=== PATIENT | female | born 1995 | race Caucasian/White ===

== ENCOUNTER 2016-07-29 09:32 | Emergency (ER) | payer OTHER ==
[2016-07-29] MEDS ORDERED: SODIUM CHLORIDE 0.9% 1,000 ML IV STA (09:53)
[2016-07-29] MEDS ORDERED: IPRATROPIUM-ALBUTEROL 3 ML NEB INHALATION STA (10:04)
--- NOTE | 2016-07-29 10:09 | ED ---
Syncope HPI - General Chief Complaint: Syncope Stated Complaint: SYNCOPE, TYPE 1 DIABETIC Time Seen by Provider: 07/29/16 09:53 Source: patient, RN notes reviewed Mode of arrival: ambulatory Limitations: no limitations - History of Present Illness Initial Comments: 21-year-old female presents emergency Department with chief complaint of syncopal episode. Patient was standing outside with her boyfriend in which she states that she just didn't feel right in which she states that she became hot and flushed and she states she started having tunnel vision. Patient states that she's never had an episode like this in the past. Patient has no complaints at this time. She did admit to being sick over the last 5 or 6 days in which she's had cough congestion. She states she's been taking Mucinex. Patient does have a history of asthma, hypothyroidism and diabetes. Patient states her most recent Accu-Chek was 200. Patient did not have a hypoglycemic event. Patient denies any chest pain or palpitations. Patient states she is a daily smoker. Patient denies any nausea vomiting diarrhea constipation. - Related Data Home Medications Medication Instructions Recorded Confirmed Insulin Aspart [NovoLOG Flexpen] See Protocol SQ AC-TID 07/29/16 07/29/16 Insulin Detemir [Levemir Flextouch] 21 unit SQ HS 07/29/16 07/29/16 Levothyroxine Sodium [Levoxyl] 125 mcg PO DAILY 07/29/16 07/29/16 Allergies Allergy/AdvReac Type Severity Reaction Status Date / Time cefaclor [From [facility]] Allergy Anaphylaxis Verified 07/29/16 11:13 Review of Systems ROS Statement: Those systems with pertinent positive or pertinent negative responses have been documented in the HPI. ROS Other: All systems not noted in ROS Statement are negative. Past Medical History Past Medical History: Diabetes Mellitus Additional Past Medical History / Comment(s): galilea History of Any Multi-Drug Resistant Organisms: None Reported Past Surgical History: No Surgical Hx Reported Past Psychological History: Anxiety Smoking Status: Current every day smoker Past Alcohol Use History: Occasional Past Drug Use History: None Reported General Exam Limitations: no limitations General appearance: alert, in no apparent distress Head exam: Present: atraumatic, normocephalic, normal inspection Eye exam: Present: normal appearance, PERRL, EOMI. Absent: scleral icterus, conjunctival injection, periorbital swelling ENT exam: Present: normal exam, normal oropharynx, mucous membranes moist, TM's normal bilaterally, normal external ear exam Neck exam: Present: normal inspection, full ROM. Absent: tenderness, meningismus, lymphadenopathy Respiratory exam: Present: normal lung sounds bilaterally. Absent: respiratory distress, wheezes, rales, rhonchi, stridor Cardiovascular Exam: Present: normal rhythm, tachycardia, normal heart sounds. Absent: systolic murmur, diastolic murmur, rubs, gallop, clicks GI/Abdominal exam: Present: soft, normal bowel sounds. Absent: distended, tenderness, guarding, rebound, rigid Neurological exam: Present: alert, oriented X3, CN II-XII intact Skin exam: Present: warm, dry, intact, normal color. Absent: rash Course Vital Signs 07/29/16 07/29/16 07/29/16 09:44 10:14 10:34 Temperature 98.5 F Pulse Rate 120 H 110 H Pulse Rate [ 112 H [employer] ] Respiratory 20 14 Rate Blood Pressure 100/67 112/63 O2 Sat by Pulse 97 96 Oximetry 07/29/16 10:40 Temperature Pulse Rate 112 H Pulse Rate [ [employer] ] Respiratory Rate Blood Pressure O2 Sat by Pulse Oximetry EKG Findings - EKG Comments: EKG Findings:: EKG performed at 10:20 sinus tachycardia with a rate of 110, MD 172, QRS duration 78, QT/QTC 354/479 Medical Decision Making - Medical Decision Making 21-year-old female presents emergency department for syncopal episode. Patient did have a vasovagal syncopal episode. Patient will be discharged at this time lab work did show mild hyperglycemia though patient has known diabetic. Return parameters were discussed. - Lab Data Result diagrams: 07/29/16 10:25 07/29/16 10:25 Lab Results 07/29/16 07/29/16 07/29/16 Range/Units 10:25 10:25 10:25 WBC 6.1 (3.8-10.6) k/uL RBC 4.81 (3.80-5.40) m/uL Hgb 15.6 (11.4-16.0) gm/dL Hct 45.7 (34.0-46.0) % MCV 95.0 (80.0-100.0) fL MCH 32.5 (25.0-35.0) pg MCHC 34.2 (31.0-37.0) g/dL RDW 11.8 (11.5-15.5) % Plt Count 177 (150-450) k/uL Neutrophils % 72 % Lymphocytes % 20 % Monocytes % 5 % Eosinophils % 1 % Basophils % 1 % Neutrophils # 4.3 (1.3-7.7) k/uL Lymphocytes # 1.2 (1.0-4.8) k/uL Monocytes # 0.3 (0-1.0) k/uL Eosinophils # 0.0 (0-0.7) k/uL Basophils # 0.0 (0-0.2) k/uL PT 9.7 (9.0-12.0) sec INR 0.9 (<1.1) APTT 24.6 (22.0-30.0) sec D-Dimer 0.20 (<0.60) mg/L FEU Sodium 137 (137-145) mmol/L Potassium 4.2 (3.5-5.1) mmol/L Chloride 99 (98-107) mmol/L Carbon Dioxide 23 (22-30) mmol/L Anion Gap 15 mmol/L BUN 15 (7-17) mg/dL Creatinine 0.65 (0.52-1.04) mg/dL Est GFR (MDRD) Af Amer >60 (>60 ml/min/1.73 sqM) Est GFR (MDRD) Non-Af >60 (>60 ml/min/1.73 sqM) Glucose 284 H (74-99) mg/dL Calcium 9.1 (8.4-10.2) mg/dL Total Bilirubin 0.6 (0.2-1.3) mg/dL AST 57 H (14-36) U/L ALT 52 (9-52) U/L Alkaline Phosphatase 93 (38-126) U/L Total Protein 7.3 (6.3-8.2) g/dL Albumin 4.3 (3.5-5.0) g/dL Urine Color Urine Appearance (Clear) Urine pH (5.0-8.0) Ur Specific [place] (1.001-1.035) Urine Protein (Negative) Urine Glucose (UA) (Negative) Urine Ketones (Negative) Urine Blood (Negative) Urine Nitrite (Negative) Urine Bilirubin (Negative) Urine Urobilinogen (<2.0) mg/dL Ur Leukocyte Esterase (Negative) Urine HCG, Qual (Not Detectd) Urine Opiates Screen (NotDetected) Ur Oxycodone Screen (NotDetected) Urine Methadone Screen (NotDetected) Ur Propoxyphene Screen (NotDetected) Ur Barbiturates Screen (NotDetected) U Tricyclic Antidepress (NotDetected) Ur Phencyclidine Scrn (NotDetected) Ur Amphetamines Screen (NotDetected) U Methamphetamines Scrn (NotDetected) U Benzodiazepines Scrn (NotDetected) Urine Cocaine Screen (NotDetected) U Marijuana (THC) Screen (NotDetected) 07/29/16 07/29/16 07/29/16 Range/Units 10:25 10:25 10:25 WBC (3.8-10.6) k/uL RBC (3.80-5.40) m/uL Hgb (11.4-16.0) gm/dL Hct (34.0-46.0) % MCV (80.0-100.0) fL MCH (25.0-35.0) pg MCHC (31.0-37.0) g/dL RDW (11.5-15.5) % Plt Count (150-450) k/uL Neutrophils % % Lymphocytes % % Monocytes % % Eosinophils % % Basophils % % Neutrophils # (1.3-7.7) k/uL Lymphocytes # (1.0-4.8) k/uL Monocytes # (0-1.0) k/uL Eosinophils # (0-0.7) k/uL Basophils # (0-0.2) k/uL PT (9.0-12.0) sec INR (<1.1) APTT (22.0-30.0) sec D-Dimer (<0.60) mg/L FEU Sodium (137-145) mmol/L Potassium (3.5-5.1) mmol/L Chloride (98-107) mmol/L Carbon Dioxide (22-30) mmol/L Anion Gap mmol/L BUN (7-17) mg/dL Creatinine (0.52-1.04) mg/dL Est GFR (MDRD) Af Amer (>60 ml/min/1.73 sqM) Est GFR (MDRD) Non-Af (>60 ml/min/1.73 sqM) Glucose (74-99) mg/dL Calcium (8.4-10.2) mg/dL Total Bilirubin (0.2-1.3) mg/dL AST (14-36) U/L ALT (9-52) U/L Alkaline Phosphatase (38-126) U/L Total Protein (6.3-8.2) g/dL Albumin (3.5-5.0) g/dL Urine Color Light Yellow Urine Appearance Clear (Clear) Urine pH 5.5 (5.0-8.0) Ur Specific [place] 1.014 (1.001-1.035) Urine Protein Negative (Negative) Urine Glucose (UA) 4+ H (Negative) Urine Ketones 1+ H (Negative) Urine Blood Negative (Negative) Urine Nitrite Negative (Negative) Urine Bilirubin Negative (Negative) Urine Urobilinogen <2.0 (<2.0) mg/dL Ur Leukocyte Esterase Negative (Negative) Urine HCG, Qual Not Detected (Not Detectd) Urine Opiates Screen Not Detected (NotDetected) Ur Oxycodone Screen Not Detected (NotDetected) Urine Methadone Screen Not Detected (NotDetected) Ur Propoxyphene Screen Not Detected (NotDetected) Ur Barbiturates Screen Not Detected (NotDetected) U Tricyclic Antidepress Not Detected (NotDetected) Ur Phencyclidine Scrn Not Detected (NotDetected) Ur Amphetamines Screen Not Detected (NotDetected) U Methamphetamines Scrn Not Detected (NotDetected) U Benzodiazepines Scrn Not Detected (NotDetected) Urine Cocaine Screen Not Detected (NotDetected) U Marijuana (THC) Screen Not Detected (NotDetected) Disposition Clinical Impression: Vasovagal syncope Disposition: HOME SELF-CARE Condition: Stable Instructions: Syncope (ED) Additional Instructions: Please return to the Emergency Department if symptoms worsen or any other concerns. Time of Disposition: 11:36
[2016-07-29 10:35] VITALS: RESP 14
[2016-07-29 10:41] LABS: Basophils % (A) 1 %; CHCM 34.9; Eosinophils % (A) 1 %; HCT 45.7 % (34.0-46.0); HGB 15.6 gm/dL (11.4-16.0); Luc # (Auto) 0.17; Luc % (Auto) 3; Lymphocytes # (A) 1.2 k/uL (1.0-4.8); Lymphocytes % (A) 20 %; MCH 32.5 pg (25.0-35.0); MCHC 34.2 g/dL (31.0-37.0); Mean Platelet Volume 7.7; Monocytes # (A) 0.3 k/uL (0-1.0); Monocytes % (A) 5 %; Neutrophils # (A) 4.3 k/uL (1.3-7.7); Neutrophils % (A) 72 %; RBC 4.81 m/uL (3.80-5.40); RDW 11.8 % (11.5-15.5); WBC 6.1 k/uL (3.8-10.6); WBC (Perox) 6.38
[2016-07-29 10:44] LABS: Appearance,Urine Clear (Clear); Bilirubin,Urine Negative (Negative); Glucose,Urine (UA) 4+ (Negative); Ketones,Urine 1+ (Negative); Leukocyte Esterase,Urine Negative (Negative); Nitrite,Urine Negative (Negative); PH, Urine 5.5 (5.0-8.0); Protein,Urine Negative (Negative); Specific Gravity,Urine 1.014 (1.001-1.035); UA Billing (MACRO vs. MICRO) CHEM; Urobilinogen,Urine <2.0 mg/dL (<2.0)
--- NOTE | 2016-07-29 10:50 | XR ---
EXAMINATION TYPE: XR chest 2V DATE OF EXAM: 07/29/2016 10:37 AM COMPARISON: Chest x-ray January 23, 2013. HISTORY: Syncope. TECHNIQUE: Frontal and lateral views of the chest are obtained. FINDINGS: There is no focal air space opacity, pleural effusion, or pneumothorax seen. The cardiac silhouette size is within normal limits. The osseous structures are intact. IMPRESSION: No acute cardiopulmonary process. No significant change from prior.
[2016-07-29 10:52] LABS: INR 0.9 (<1.1); Prothrombin Time 9.7 sec (9.0-12.0)
[2016-07-29 10:53] LABS: ALT 52 U/L (9-52); AST 57 U/L (14-36); Alkaline Phosphatase 93 U/L (38-126); Anion Gap 15 mmol/L; Blood Urea Nitrogen 15 mg/dL (7-17); Calcium 9.1 mg/dL (8.4-10.2); Carbon Dioxide 23 mmol/L (22-30); Chloride 99 mmol/L (98-107); Glucose 284 mg/dL (74-99); Non-African American GFR(MDRD) >60 (>60 ml/min/1.73 sqM); Partial Thromboplastin Time 24.6 sec (22.0-30.0); Potassium 4.2 mmol/L (3.5-5.1); Sodium 137 mmol/L (137-145); Total Bilirubin 0.6 mg/dL (0.2-1.3); Total Protein 7.3 g/dL (6.3-8.2)
[2016-07-29 12:01] VITALS: BP 112/67; PULSE 117; TEMP 101.6
== END 2016-07-29 12:01 | disposition home or self-care (01) ==
LOC: EC 09:32
DX: E10.65 Type 1 diabetes mellitus with hyperglycemia (principal); R55 Syncope and collapse; R05 Cough; R09.89 Other specified symptoms and signs involving the circulatory and respiratory systems; E06.3 Autoimmune thyroiditis; Z79.4 Long term (current) use of insulin; Z79.899 Other long term (current) drug therapy; Z88.1 Allergy status to other antibiotic agents
CPT/HCPCS: 36415; 71020; 80053; 80306; 81003; 81025; 85025; 85379; 85610; 85730; 93005; 94640; 96360; 99284

== ENCOUNTER 2017-06-30 08:29 | Emergency (ER) | payer OTHER ==
[2017-06-30 08:45] VITALS: RESP 16; TEMP 98.2
[2017-06-30] MEDS ORDERED: FAMOTIDINE 20 MG/2 ML VIAL IV STA (09:28)
[2017-06-30] MEDS ORDERED: SODIUM CHLORIDE 0.9% 1,000 ML IV STA (09:28)
--- NOTE | 2017-06-30 09:51 | ED ---
General Adult HPI - General Chief complaint: Nausea/Vomiting/Diarrhea Stated complaint: vomiting blood, Time Seen by Provider: 06/30/17 09:10 Source: patient, RN notes reviewed Mode of arrival: ambulatory Limitations: no limitations - History of Present Illness Initial comments: 22-year-old female presents to the emergency department with a chief complaint of nausea and vomiting and . She states that she's had this off-and- on for the past few months. She wakes up with soap upper abdominal. She throws up and then the pain resolves. She states that she's noticed that there is been some red streaks in the vomit so she was concerned. She states today it seemed to be a little worse so she also was concerned. She has not vomited since she's got here. She states that her symptoms have much improved. She denies any lightheadedness or dizziness with this. She denies any history of blood in her vomit in the past. She is a . They were concerned when they saw the blood so they thought that they should be seen. Patient denies any recent fever, chills, shortness of breath, chest pain, back pain, abdominal pain , numbness or tingling, dysuria or hematuria, constipation or diarrhea, headaches or visual changes, or any other current symptoms. - Related Data Home Medications Medication Instructions Recorded Confirmed Insulin Aspart [NovoLOG Flexpen] See Protocol SQ AC-TID 07/29/16 06/30/17 Insulin Glargine,Hum.rec.anlog 23 units SQ QAM 06/30/17 06/30/17 [Basaglar Kwikpen U-100] Levothyroxine Sodium [Synthroid] 200 mcg PO QAM 06/30/17 06/30/17 Previous Rx's Medication Instructions Recorded Famotidine [Pepcid] 20 mg PO BID #10 tablet 06/30/17 Metoclopramide HCl [Reglan] 5 mg PO DAILY #10 tablet 06/30/17 Nitrofurantoin Macrocrystal 100 mg PO BID #14 cap 06/30/17 [Macrodantin] Allergies Allergy/AdvReac Type Severity Reaction Status Date / Time cefaclor [From [facility]] Allergy Anaphylaxis Verified 06/30/17 08:55 Review of Systems ROS Statement: Those systems with pertinent positive or pertinent negative responses have been documented in the HPI. ROS Other: All systems not noted in ROS Statement are negative. Past Medical History Past Medical History: Diabetes Mellitus, Thyroid Disorder Additional Past Medical History / Comment(s): galilea History of Any Multi-Drug Resistant Organisms: None Reported Past Surgical History: No Surgical Hx Reported Additional Past Surgical History / Comment(s): d and c , left groin Past Psychological History: Anxiety Smoking Status: Current some day smoker Past Alcohol Use History: None Reported Past Drug Use History: None Reported General Exam - General Exam Comments Initial Comments: General: The patient is awake and alert, in no distress, and does not appear acutely ill. Eye: Pupils are equal, round and reactive to light, extra-ocular movements are intact; there is normal conjunctiva bilaterally. No signs of icterus. Ears, nose, mouth and throat: There are moist mucous membranes. Neck: The neck is supple, there is no tenderness. Cardiovascular: There is a regular rate and rhythm. No murmur, rub or gallop is appreciated. Respiratory: Lungs are clear to auscultation, respirations are non-labored, breath sounds are equal. No wheezes, stridor, rales, or rhonchi. Gastrointestinal: Soft, non-distended, non-tender abdomen without masses or organomegaly noted. There is no rebound or guarding present. No CVA tenderness. Bowel sounds are unremarkable. Back: There is no tenderness to palpation in the midline. There is no obvious deformity. No rashes noted. Musculoskeletal: Normal ROM, no tenderness, There is no pedal edema. There is no calf tenderness or swelling. Sensation intact. Pulses equal bilaterally 2+. Neurological: CN II-XII intact, There are no obvious motor or sensory deficits. Coordination appears grossly intact. Speech is normal. Skin: Skin is warm and dry and no rashes or lesions are noted. Psychiatric: Cooperative, appropriate mood & affect, normal judgment. Limitations: no limitations Course Vital Signs 06/30/17 08:41 Temperature 98.2 F Pulse Rate 98 Respiratory 16 Rate Blood Pressure 131/85 O2 Sat by Pulse 100 Oximetry Medical Decision Making - Medical Decision Making 22-year-old female presents to the emergency department with a chief complaint of nausea and vomiting. At this time patient's lab work has been reviewed. At this time we did discuss the hyperglycemia as well as concern for possible UTI. We will start the patient on antibiotics for UTI we'll also start her on Pepcid and Reglan for the nausea vomiting. We did discuss close monitoring of her glucose level. 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 We did discuss return parameters all questions. Patient stated that she understood and she is in agreement with this plan. All questions have been answered. She will be discharged. - Lab Data Result diagrams: 06/30/17 09:42 06/30/17 09:42 Lab Results 06/30/17 06/30/17 06/30/17 Range/Units 09:42 09:42 09:42 WBC 10.2 (3.8-10.6) k/uL RBC 4.77 (3.80-5.40) m/uL Hgb 14.8 (11.4-16.0) gm/dL Hct 44.1 (34.0-46.0) % MCV 92.4 (80.0-100.0) fL MCH 31.1 (25.0-35.0) pg MCHC 33.6 (31.0-37.0) g/dL RDW 12.7 (11.5-15.5) % Plt Count 218 (150-450) k/uL Neutrophils % 75 % Lymphocytes % 20 % Monocytes % 3 % Eosinophils % 1 % Basophils % 1 % Neutrophils # 7.6 (1.3-7.7) k/uL Lymphocytes # 2.1 (1.0-4.8) k/uL Monocytes # 0.3 (0-1.0) k/uL Eosinophils # 0.1 (0-0.7) k/uL Basophils # 0.1 (0-0.2) k/uL PT (9.0-12.0) sec INR (<1.2) APTT (22.0-30.0) sec Sodium 137 (137-145) mmol/L Potassium 4.4 (3.5-5.1) mmol/L Chloride 100 (98-107) mmol/L Carbon Dioxide 25 (22-30) mmol/L Anion Gap 12 mmol/L BUN 14 (7-17) mg/dL Creatinine 0.49 L (0.52-1.04) mg/dL Est GFR (MDRD) Af Amer >60 (>60 ml/min/1.73 sqM) Est GFR (MDRD) Non-Af >60 (>60 ml/min/1.73 sqM) Glucose 292 H (74-99) mg/dL Calcium 9.0 (8.4-10.2) mg/dL Total Bilirubin 0.5 (0.2-1.3) mg/dL AST 19 (14-36) U/L ALT 21 (9-52) U/L Alkaline Phosphatase 60 (38-126) U/L Total Protein 6.5 (6.3-8.2) g/dL Albumin 3.8 (3.5-5.0) g/dL Amylase 63 (30-110) U/L Lipase 161 (23-300) U/L HCG, Quant 28142.2 mIU/mL Urine Color Urine Appearance (Clear) Urine pH (5.0-8.0) Ur Specific [place] (1.001-1.035) Urine Protein (Negative) Urine Glucose (UA) (Negative) Urine Ketones (Negative) Urine Blood (Negative) Urine Nitrite (Negative) Urine Bilirubin (Negative) Urine Urobilinogen (<2.0) mg/dL Ur Leukocyte Esterase (Negative) Urine RBC (0-5) /hpf Urine WBC (0-5) /hpf Ur Squamous Epith Cells (0-4) /hpf Urine Bacteria (None) /hpf Urine Mucus (None) /hpf Blood Type A Positive Blood Type Recheck CABO Indicated Antibody Screen NEGATIVE Spec Expiration Date 07/03/2017 - 234106/30/17 06/30/17 Range/Units 09:42 09:42 WBC (3.8-10.6) k/uL RBC (3.80-5.40) m/uL Hgb (11.4-16.0) gm/dL Hct (34.0-46.0) % MCV (80.0-100.0) fL MCH (25.0-35.0) pg MCHC (31.0-37.0) g/dL RDW (11.5-15.5) % Plt Count (150-450) k/uL Neutrophils % % Lymphocytes % % Monocytes % % Eosinophils % % Basophils % % Neutrophils # (1.3-7.7) k/uL Lymphocytes # (1.0-4.8) k/uL Monocytes # (0-1.0) k/uL Eosinophils # (0-0.7) k/uL Basophils # (0-0.2) k/uL PT 9.3 (9.0-12.0) sec INR 0.9 (<1.2) APTT 22.4 (22.0-30.0) sec Sodium (137-145) mmol/L Potassium (3.5-5.1) mmol/L Chloride (98-107) mmol/L Carbon Dioxide (22-30) mmol/L Anion Gap mmol/L BUN (7-17) mg/dL Creatinine (0.52-1.04) mg/dL Est GFR (MDRD) Af Amer (>60 ml/min/1.73 sqM) Est GFR (MDRD) Non-Af (>60 ml/min/1.73 sqM) Glucose (74-99) mg/dL Calcium (8.4-10.2) mg/dL Total Bilirubin (0.2-1.3) mg/dL AST (14-36) U/L ALT (9-52) U/L Alkaline Phosphatase (38-126) U/L Total Protein (6.3-8.2) g/dL Albumin (3.5-5.0) g/dL Amylase (30-110) U/L Lipase (23-300) U/L HCG, Quant mIU/mL Urine Color Light Yellow Urine Appearance Cloudy H (Clear) Urine pH 5.5 (5.0-8.0) Ur Specific [place] 1.017 (1.001-1.035) Urine Protein Negative (Negative) Urine Glucose (UA) 4+ H (Negative) Urine Ketones Trace H (Negative) Urine Blood Negative (Negative) Urine Nitrite Negative (Negative) Urine Bilirubin Negative (Negative) Urine Urobilinogen <2.0 (<2.0) mg/dL Ur Leukocyte Esterase Negative (Negative) Urine RBC 1 (0-5) /hpf Urine WBC 10 H (0-5) /hpf Ur Squamous Epith Cells 1 (0-4) /hpf Urine Bacteria Moderate H (None) /hpf Urine Mucus Rare H (None) /hpf Blood Type Blood Type Recheck Antibody Screen Spec Expiration Date Disposition Clinical Impression: Nausea and vomiting during , Hyperglycemia, Dehydration, UTI (urinary tract infection) Disposition: HOME SELF-CARE Condition: Stable Instructions: Urinary Tract Infection in Women (ED), Acute Nausea and Vomiting (ED) Additional Instructions: Please use medication as discussed. Please follow up with family doctor if symptoms have not improved over the next two days. Please return to the emergency room if your symptoms increase or worsen or for any other concerns. Prescriptions: Famotidine [Pepcid] 20 mg PO BID #10 tablet Metoclopramide HCl [Reglan] 5 mg PO DAILY #10 tablet Nitrofurantoin Macrocrystal [Macrodantin] 100 mg PO BID #14 cap Referrals: Gerardo Ambrocio MD [Primary Care Provider] - 1-2 days Time of Disposition: 11:31
[2017-06-30 10:05] LABS: Basophils # (A) 0.1 k/uL (0-0.2); Basophils % (A) 1 %; Eosinophils # (A) 0.1 k/uL (0-0.7); Eosinophils % (A) 1 %; HCT 44.1 % (34.0-46.0); HGB 14.8 gm/dL (11.4-16.0); Lymphocytes # (A) 2.1 k/uL (1.0-4.8); Lymphocytes % (A) 20 %; MCH 31.1 pg (25.0-35.0); MCHC 33.6 g/dL (31.0-37.0); MCV 92.4 fL (80.0-100.0); Mean Platelet Volume 7.5; Monocytes # (A) 0.3 k/uL (0-1.0); Monocytes % (A) 3 %; Neutrophils # (A) 7.6 k/uL (1.3-7.7); Neutrophils % (A) 75 %; Platelet Count 218 k/uL (150-450); RBC 4.77 m/uL (3.80-5.40); RDW 12.7 % (11.5-15.5); WBC 10.2 k/uL (3.8-10.6)
[2017-06-30 10:15] LABS: INR 0.9 (<1.2); Partial Thromboplastin Time 22.4 sec (22.0-30.0); Prothrombin Time 9.3 sec (9.0-12.0)
[2017-06-30 10:18] LABS: Appearance,Urine Cloudy (Clear); Bacteria,Urine Moderate /hpf; Bilirubin,Urine Negative (Negative); Blood,Urine Negative (Negative); Color,Urine Light Yellow; Glucose,Urine (UA) 4+ (Negative); Ketones,Urine Trace (Negative); Leukocyte Esterase,Urine Negative (Negative); Mucus,Urine Rare /hpf; Nitrite,Urine Negative (Negative); PH, Urine 5.5 (5.0-8.0); Protein,Urine Negative (Negative); RBC,Urine 1 /hpf (0-5); Specific Gravity,Urine 1.017 (1.001-1.035); Squamous Epithelial Cell,Urine 1 /hpf (0-4); Urobilinogen,Urine <2.0 mg/dL (<2.0); WBC,Urine 10 /hpf (0-5)
[2017-06-30 10:20] LABS: ALT 21 U/L (9-52); AST 19 U/L (14-36); Albumin 3.8 g/dL (3.5-5.0); Alkaline Phosphatase 60 U/L (38-126); Amylase 63 U/L (30-110); Anion Gap 12 mmol/L; Blood Urea Nitrogen 14 mg/dL (7-17); Carbon Dioxide 25 mmol/L (22-30); Chloride 100 mmol/L (98-107); Glucose 292 mg/dL (74-99); Lipase 161 U/L (23-300); Potassium 4.4 mmol/L (3.5-5.1); Sodium 137 mmol/L (137-145); Total Bilirubin 0.5 mg/dL (0.2-1.3); Total Protein 6.5 g/dL (6.3-8.2)
[2017-06-30 11:07] LABS: HCG,Quantitative Serum 37659.2 mIU/mL
[2017-06-30 11:39] VITALS: BP 113/68; PULSE 86
== END 2017-06-30 11:50 | disposition home or self-care (01) ==
LOC: EC 08:29
DX: O21.9 Vomiting of pregnancy, unspecified (principal); O23.40 Unspecified infection of urinary tract in pregnancy, unspecified trimester; O99.280 Endocrine, nutritional and metabolic diseases complicating pregnancy, unspecified trimester; E11.65 Type 2 diabetes mellitus with hyperglycemia; E86.0 Dehydration; E07.9 Disorder of thyroid, unspecified; O99.330 Smoking (tobacco) complicating pregnancy, unspecified trimester; F17.200 Nicotine dependence, unspecified, uncomplicated; Z79.4 Long term (current) use of insulin; Z79.899 Other long term (current) drug therapy; Z88.1 Allergy status to other antibiotic agents; Z3A.00 Weeks of gestation of pregnancy not specified
CPT/HCPCS: 36415; 80053; 81001; 82150; 83690; 84702; 85025; 85610; 85730; 86850; 86900; 86901; 87077; 87086; 87186; 96361; 96374; 99284

== ENCOUNTER 2021-03-03 18:03 | Inpatient (IN) | payer OTHER ==
[2021-03-03] MEDS ORDERED: ONDANSETRON 4 MG/2 ML VIAL IVP STA ×2 (19:43→21:21)
[2021-03-03] MEDS ORDERED: SODIUM CHLORIDE 0.9% 1,000 ML IV STA ×2 (19:43→21:21)
[2021-03-03 20:05] LABS: Basophils % (A) 0 %; Eosinophils % (A) 0 %; HCT 42.1 % (34.0-46.0); HGB 14.2 gm/dL (11.4-16.0); Lymphocytes # (A) 0.9 k/uL (1.0-4.8); Lymphocytes % (A) 13 %; MCH 31.9 pg (25.0-35.0); MCHC 33.7 g/dL (31.0-37.0); MCV 94.6 fL (80.0-100.0); Mean Platelet Volume 9.2; Monocytes # (A) 0.1 k/uL (0-1.0); Monocytes % (A) 2 %; Neutrophils # (A) 5.6 k/uL (1.3-7.7); Neutrophils % (A) 84 %; Platelet Count 149 k/uL (150-450); RBC 4.45 m/uL (3.80-5.40); RDW 12.3 % (11.5-15.5); WBC 6.7 k/uL (3.8-10.6)
[2021-03-03 20:15] LABS: Albumin 4.3 g/dL (3.5-5.0); Calcium 8.9 mg/dL (8.4-10.2); Potassium 4.7 mmol/L (3.5-5.1); Total Bilirubin 0.3 mg/dL (0.2-1.3); Total Protein 7.1 g/dL (6.3-8.2)
[2021-03-03] MEDS ORDERED: INSULN ASP PRT/INSULIN ASPART 100 UNIT/ML 10 ML VIAL SQ ONE (21:31)
[2021-03-03 21:42] LABS: Glucose,Whole Blood 335 mg/dL (75-99)
[2021-03-03] MEDS ORDERED: SODIUM CHLORIDE 0.9% 50 ML IVPB ONE (21:45)
[2021-03-03] MEDS ORDERED: CASIRIVIMAB (REGN10933) (EUA) 600 MG, IMDEVIMAB (REGN10987) (EUA) 600 MG in SODIUM CHLO... IVPB ONE (22:15)
[2021-03-03] MEDS ORDERED: D5-0.45% NACL WITH KCL 20MEQ/L 1,000 ML IV SCH (22:30)
--- NOTE | 2021-03-03 22:33 | ED ---
Nausea/Vomiting/Diarrhea HPI - General Source: patient, family, RN notes reviewed Mode of arrival: ambulatory Limitations: no limitations <Darin Dominguez - Last Filed: 03/03/21 22:29> <Boston Phipps - Last Filed: 03/06/21 03:33> - General Chief complaint: Nausea/Vomiting/Diarrhea Stated complaint: vomiting Time Seen by Provider: 03/03/21 19:43 - History of Present Illness Initial comments: Patient is a 25-year-old female that presents to emergency department complaining of nausea and abdominal pain. She notes she did get tested for Covid at the local [facility] which came back positive. She notes she does want to monoclonal antibody therapy. She also notes that she is a type I diabetic. Be in minimal distress and pain while laying in bed during the exam interview. She notes that she would like to stay tonight due to having Covid not feeling well and having small children at home. She was otherwise no complaints. She denied chest pain shortness of breath headache diarrhea constipation fever fatigue ch ills. (Darin Dominguez) - Related Data Home Medications Medication Instructions Recorded Confirmed Levothyroxine Sodium [Synthroid] 200 mcg PO DAILY 06/30/17 03/03/21 INSULIN LISPRO (humaLOG) [humaLOG] See Protocol SQ AC-TID 03/03/21 03/03/21 Insulin Glargine [Lantus Vial] 20 units SQ HS 03/03/21 03/03/21 Allergies Allergy/AdvReac Type Severity Reaction Status Date / Time cefaclor [From Ceclor] Allergy Family Verified 03/03/21 20:51 history Review of Systems ROS Other: All systems not noted in ROS Statement are negative. <Darin Dominguez - Last Filed: 03/03/21 22:29> ROS Other: All systems not noted in ROS Statement are negative. <Boston Phipps - Last Filed: 03/06/21 03:33> ROS Statement: Those systems with pertinent positive or pertinent negative responses have been documented in the HPI. Past Medical History Past Medical History: Diabetes Mellitus, Thyroid Disorder Additional Past Medical History / Comment(s): galilea History of Any Multi-Drug Resistant Organisms: None Reported Past Surgical History: No Surgical Hx Reported Additional Past Surgical History / Comment(s): d and c , left groin Past Psychological History: Anxiety Smoking Status: Former smoker Past Alcohol Use History: None Reported Past Drug Use History: None Reported <Darin Dominguez - Last Filed: 03/03/21 22:29> General Exam Limitations: no limitations General appearance: alert, in no apparent distress Head exam: Present: atraumatic, normocephalic, normal inspection Eye exam: Present: normal appearance, PERRL, EOMI. Absent: scleral icterus, conjunctival injection, periorbital swelling ENT exam: Present: normal exam, mucous membranes moist Neck exam: Present: normal inspection Respiratory exam: Present: normal lung sounds bilaterally. Absent: respiratory distress, wheezes, rales, rhonchi, stridor Cardiovascular Exam: Present: regular rate, normal rhythm, normal heart sounds. Absent: systolic murmur, diastolic murmur, rubs, gallop, clicks GI/Abdominal exam: Present: soft, normal bowel sounds. Absent: distended, tenderness, guarding, rebound, rigid Extremities exam: Present: normal inspection, full ROM, normal capillary refill. Absent: tenderness, pedal edema, joint swelling, calf tenderness Neurological exam: Present: alert, oriented X3 Psychiatric exam: Present: normal affect, normal mood Skin exam: Present: warm, dry, intact, normal color. Absent: rash <Veronica Dominguezk - Last Filed: 03/03/21 22:29> Course Vital Signs 03/03/21 03/03/21 03/04/21 18:05 22:37 00:56 Temperature 98.6 F 100.4 F H 100.3 F H Pulse Rate 109 H 105 H 111 H Respiratory 20 18 18 Rate Blood Pressure 94/66 110/73 134/80 O2 Sat by Pulse 98 100 98 Oximetry 03/04/21 03/04/21 03/04/21 04:00 06:00 07:00 Temperature 100.1 F H Pulse Rate 110 H 93 100 Respiratory 20 17 11 L Rate Blood Pressure 120/74 120/74 O2 Sat by Pulse Oximetry 03/04/21 03/04/21 03/04/21 08:00 13:00 16:00 Temperature Pulse Rate 93 95 89 Respiratory 15 12 13 Rate Blood Pressure 120/74 118/74 121/78 O2 Sat by Pulse 100 98 Oximetry 03/04/21 03/04/21 21:00 22:09 Temperature 99.7 F H Pulse Rate 91 Respiratory 13 Rate Blood Pressure 120/81 O2 Sat by Pulse 99 Oximetry Medical Decision Making - Lab Data Result diagrams: 03/03/21 19:59 03/03/21 19:59 <Darin Dominguez - Last Filed: 03/03/21 22:29> - Lab Data Result diagrams: 03/05/21 05:54 03/05/21 05:54 <Boston Phipps - Last Filed: 03/06/21 03:33> - Medical Decision Making 25-year-old female complaining of nausea vomiting and Covid positive. Labs, 1 L normal saline, monoclonal antibody Labs: CBC unremarkable, CMP shows glucose of 416 8 units of insulin ordered. Acetone positive. 1 more liter normal saline ordered due to elevated glucose and positive acetone. Dr. Calero consulted and will accept the admit for DKA. Case discussed with Dr. Phipps. (Darin Dominguez) I saw this patient in conjunction with the physician seo assistant. I performed independent history and physical exam. Agree with case management. (Boston Phipps) - Lab Data Lab Results 03/03/21 03/03/21 03/03/21 Range/Units 19:59 19:59 19:59 WBC 6.7 (3.8-10.6) k/uL RBC 4.45 (3.80-5.40) m/uL Hgb 14.2 (11.4-16.0) gm/dL Hct 42.1 (34.0-46.0) % MCV 94.6 (80.0-100.0) fL MCH 31.9 (25.0-35.0) pg MCHC 33.7 (31.0-37.0) g/dL RDW 12.3 (11.5-15.5) % Plt Count 149 L (150-450) k/uL MPV 9.2 Neutrophils % 84 % Lymphocytes % 13 % Monocytes % 2 % Eosinophils % 0 % Basophils % 0 % Neutrophils # 5.6 (1.3-7.7) k/uL Lymphocytes # 0.9 L (1.0-4.8) k/uL Monocytes # 0.1 (0-1.0) k/uL Eosinophils # 0.0 (0-0.7) k/uL Basophils # 0.0 (0-0.2) k/uL Sodium 139 (137-145) mmol/L Potassium 4.7 (3.5-5.1) mmol/L Chloride 102 (98-107) mmol/L Carbon Dioxide 17 L (22-30) mmol/L Anion Gap 20 mmol/L BUN 21 H (7-17) mg/dL Creatinine 1.18 H (0.52-1.04) mg/dL Est GFR (CKD-EPI)AfAm 74 (>60 ml/min/1.73 sqM) Est GFR (CKD-EPI)NonAf 65 (>60 ml/min/1.73 sqM) Glucose 416 H (74-99) mg/dL POC Glucose (mg/dL) (75-99) mg/dL POC Glu City Controller ID Calcium 8.9 (8.4-10.2) mg/dL Phosphorus (2.5-4.5) mg/dL Total Bilirubin 0.3 (0.2-1.3) mg/dL AST 94 H (14-36) U/L ALT 56 H (4-34) U/L Alkaline Phosphatase 105 (38-126) U/L Total Protein 7.1 (6.3-8.2) g/dL Albumin 4.3 (3.5-5.0) g/dL Amylase 49 (30-110) U/L Lipase 29 (23-300) U/L Urine Color Urine Appearance (Clear) Urine pH (5.0-8.0) Ur Specific [place] (1.001-1.035) Urine Protein (Negative) Urine Glucose (UA) (Negative) Urine Ketones (Negative) Urine Blood (Negative) Urine Nitrite (Negative) Urine Bilirubin (Negative) Urine Urobilinogen (<2.0) mg/dL Ur Leukocyte Esterase (Negative) Urine RBC (0-5) /hpf Urine WBC (0-5) /hpf Ur Squamous Epith Cells (0-4) /hpf Hyaline Casts (0-2) /lpf Urine Mucus (None) /hpf Urine HCG, Qual (Not Detectd) Acetone, Qual Positive (Negative) 03/03/21 03/03/21 03/03/21 Range/Units 21:39 23:18 23:49 WBC (3.8-10.6) k/uL RBC (3.80-5.40) m/uL Hgb (11.4-16.0) gm/dL Hct (34.0-46.0) % MCV (80.0-100.0) fL MCH (25.0-35.0) pg MCHC (31.0-37.0) g/dL RDW (11.5-15.5) % Plt Count (150-450) k/uL MPV Neutrophils % % Lymphocytes % % Monocytes % % Eosinophils % % Basophils % % Neutrophils # (1.3-7.7) k/uL Lymphocytes # (1.0-4.8) k/uL Monocytes # (0-1.0) k/uL Eosinophils # (0-0.7) k/uL Basophils # (0-0.2) k/uL Sodium (137-145) mmol/L Potassium (3.5-5.1) mmol/L Chloride (98-107) mmol/L Carbon Dioxide (22-30) mmol/L Anion Gap mmol/L BUN (7-17) mg/dL Creatinine (0.52-1.04) mg/dL Est GFR (CKD-EPI)AfAm (>60 ml/min/1.73 sqM) Est GFR (CKD-EPI)NonAf (>60 ml/min/1.73 sqM) Glucose (74-99) mg/dL POC Glucose (mg/dL) 335 H 288 H 277 H (75-99) mg/dL POC Glu City Controller ID Chema, Keyon Bear, Susy Diallo Calcium (8.4-10.2) mg/dL Phosphorus (2.5-4.5) mg/dL Total Bilirubin (0.2-1.3) mg/dL AST (14-36) U/L ALT (4-34) U/L Alkaline Phosphatase (38-126) U/L Total Protein (6.3-8.2) g/dL Albumin (3.5-5.0) g/dL Amylase (30-110) U/L Lipase (23-300) U/L Urine Color Urine Appearance (Clear) Urine pH (5.0-8.0) Ur Specific [place] (1.001-1.035) Urine Protein (Negative) Urine Glucose (UA) (Negative) Urine Ketones (Negative) Urine Blood (Negative) Urine Nitrite (Negative) Urine Bilirubin (Negative) Urine Urobilinogen (<2.0) mg/dL Ur Leukocyte Esterase (Negative) Urine RBC (0-5) /hpf Urine WBC (0-5) /hpf Ur Squamous Epith Cells (0-4) /hpf Hyaline Casts (0-2) /lpf Urine Mucus (None) /hpf Urine HCG, Qual (Not Detectd) Acetone, Qual (Negative) 03/03/21 03/03/21 03/04/21 Range/Units 23:50 23:50 00:53 WBC (3.8-10.6) k/uL RBC (3.80-5.40) m/uL Hgb (11.4-16.0) gm/dL Hct (34.0-46.0) % MCV (80.0-100.0) fL MCH (25.0-35.0) pg MCHC (31.0-37.0) g/dL RDW (11.5-15.5) % Plt Count (150-450) k/uL MPV Neutrophils % % Lymphocytes % % Monocytes % % Eosinophils % % Basophils % % Neutrophils # (1.3-7.7) k/uL Lymphocytes # (1.0-4.8) k/uL Monocytes # (0-1.0) k/uL Eosinophils # (0-0.7) k/uL Basophils # (0-0.2) k/uL Sodium 138 (137-145) mmol/L Potassium 4.4 (3.5-5.1) mmol/L Chloride 107 (98-107) mmol/L Carbon Dioxide 17 L (22-30) mmol/L Anion Gap 14 mmol/L BUN 18 H (7-17) mg/dL Creatinine 0.93 (0.52-1.04) mg/dL Est GFR (CKD-EPI)AfAm >90 (>60 ml/min/1.73 sqM) Est GFR (CKD-EPI)NonAf 86 (>60 ml/min/1.73 sqM) Glucose 307 H (74-99) mg/dL POC Glucose (mg/dL) 278 H (75-99) mg/dL POC Glu City Controller ID Hightower, Susy Calcium (8.4-10.2) mg/dL Phosphorus 3.7 (2.5-4.5) mg/dL Total Bilirubin (0.2-1.3) mg/dL AST (14-36) U/L ALT (4-34) U/L Alkaline Phosphatase (38-126) U/L Total Protein (6.3-8.2) g/dL Albumin (3.5-5.0) g/dL Amylase (30-110) U/L Lipase (23-300) U/L Urine Color Urine Appearance (Clear) Urine pH (5.0-8.0) Ur Specific [place] (1.001-1.035) Urine Protein (Negative) Urine Glucose (UA) (Negative) Urine Ketones (Negative) Urine Blood (Negative) Urine Nitrite (Negative) Urine Bilirubin (Negative) Urine Urobilinogen (<2.0) mg/dL Ur Leukocyte Esterase (Negative) Urine RBC (0-5) /hpf Urine WBC (0-5) /hpf Ur Squamous Epith Cells (0-4) /hpf Hyaline Casts (0-2) /lpf Urine Mucus (None) /hpf Urine HCG, Qual (Not Detectd) Acetone, Qual (Negative) 03/04/21 03/04/21 03/04/21 Range/Units 01:41 01:41 01:49 WBC (3.8-10.6) k/uL RBC (3.80-5.40) m/uL Hgb (11.4-16.0) gm/dL Hct (34.0-46.0) % MCV (80.0-100.0) fL MCH (25.0-35.0) pg MCHC (31.0-37.0) g/dL RDW (11.5-15.5) % Plt Count (150-450) k/uL MPV Neutrophils % % Lymphocytes % % Monocytes % % Eosinophils % % Basophils % % Neutrophils # (1.3-7.7) k/uL Lymphocytes # (1.0-4.8) k/uL Monocytes # (0-1.0) k/uL Eosinophils # (0-0.7) k/uL Basophils # (0-0.2) k/uL Sodium (137-145) mmol/L Potassium (3.5-5.1) mmol/L Chloride (98-107) mmol/L Carbon Dioxide (22-30) mmol/L Anion Gap mmol/L BUN (7-17) mg/dL Creatinine (0.52-1.04) mg/dL Est GFR (CKD-EPI)AfAm (>60 ml/min/1.73 sqM) Est GFR (CKD-EPI)NonAf (>60 ml/min/1.73 sqM) Glucose (74-99) mg/dL POC Glucose (mg/dL) 209 H (75-99) mg/dL POC Glu City Controller ID Stephanie Davis Calcium (8.4-10.2) mg/dL Phosphorus (2.5-4.5) mg/dL Total Bilirubin (0.2-1.3) mg/dL AST (14-36) U/L ALT (4-34) U/L Alkaline Phosphatase (38-126) U/L Total Protein (6.3-8.2) g/dL Albumin (3.5-5.0) g/dL Amylase (30-110) U/L Lipase (23-300) U/L Urine Color Yellow Urine Appearance Clear (Clear) Urine pH 5.5 (5.0-8.0) Ur Specific [place] 1.023 (1.001-1.035) Urine Protein 1+ H (Negative) Urine Glucose (UA) 4+ H (Negative) Urine Ketones 3+ H (Negative) Urine Blood Negative (Negative) Urine Nitrite Negative (Negative) Urine Bilirubin Negative (Negative) Urine Urobilinogen <2.0 (<2.0) mg/dL Ur Leukocyte Esterase Negative (Negative) Urine RBC 3 (0-5) /hpf Urine WBC 2 (0-5) /hpf Ur Squamous Epith Cells <1 (0-4) /hpf Hyaline Casts 18 H (0-2) /lpf Urine Mucus Rare H (None) /hpf Urine HCG, Qual Not Detected (Not Detectd) Acetone, Qual (Negative) 03/04/21 03/04/21 03/04/21 Range/Units 02:34 04:00 05:03 WBC (3.8-10.6) k/uL RBC (3.80-5.40) m/uL Hgb (11.4-16.0) gm/dL Hct (34.0-46.0) % MCV (80.0-100.0) fL MCH (25.0-35.0) pg MCHC (31.0-37.0) g/dL RDW (11.5-15.5) % Plt Count (150-450) k/uL MPV Neutrophils % % Lymphocytes % % Monocytes % % Eosinophils % % Basophils % % Neutrophils # (1.3-7.7) k/uL Lymphocytes # (1.0-4.8) k/uL Monocytes # (0-1.0) k/uL Eosinophils # (0-0.7) k/uL Basophils # (0-0.2) k/uL Sodium (137-145) mmol/L Potassium (3.5-5.1) mmol/L Chloride (98-107) mmol/L Carbon Dioxide (22-30) mmol/L Anion Gap mmol/L BUN (7-17) mg/dL Creatinine (0.52-1.04) mg/dL Est GFR (CKD-EPI)AfAm (>60 ml/min/1.73 sqM) Est GFR (CKD-EPI)NonAf (>60 ml/min/1.73 sqM) Glucose (74-99) mg/dL POC Glucose (mg/dL) 176 H 135 H 116 H (75-99) mg/dL POC Glu City Controller ID Davis, Stephanie Davis, Stephanie Davis, Stephanie Calcium (8.4-10.2) mg/dL Phosphorus (2.5-4.5) mg/dL Total Bilirubin (0.2-1.3) mg/dL AST (14-36) U/L ALT (4-34) U/L Alkaline Phosphatase (38-126) U/L Total Protein (6.3-8.2) g/dL Albumin (3.5-5.0) g/dL Amylase (30-110) U/L Lipase (23-300) U/L Urine Color Urine Appearance (Clear) Urine pH (5.0-8.0) Ur Specific [place] (1.001-1.035) Urine Protein (Negative) Urine Glucose (UA) (Negative) Urine Ketones (Negative) Urine Blood (Negative) Urine Nitrite (Negative) Urine Bilirubin (Negative) Urine Urobilinogen (<2.0) mg/dL Ur Leukocyte Esterase (Negative) Urine RBC (0-5) /hpf Urine WBC (0-5) /hpf Ur Squamous Epith Cells (0-4) /hpf Hyaline Casts (0-2) /lpf Urine Mucus (None) /hpf Urine HCG, Qual (Not Detectd) Acetone, Qual (Negative) 03/04/21 03/04/21 Range/Units 06:19 07:54 WBC (3.8-10.6) k/uL RBC (3.80-5.40) m/uL Hgb (11.4-16.0) gm/dL Hct (34.0-46.0) % MCV (80.0-100.0) fL MCH (25.0-35.0) pg MCHC (31.0-37.0) g/dL RDW (11.5-15.5) % Plt Count (150-450) k/uL MPV Neutrophils % % Lymphocytes % % Monocytes % % Eosinophils % % Basophils % % Neutrophils # (1.3-7.7) k/uL Lymphocytes # (1.0-4.8) k/uL Monocytes # (0-1.0) k/uL Eosinophils # (0-0.7) k/uL Basophils # (0-0.2) k/uL Sodium (137-145) mmol/L Potassium (3.5-5.1) mmol/L Chloride (98-107) mmol/L Carbon Dioxide (22-30) mmol/L Anion Gap mmol/L BUN (7-17) mg/dL Creatinine (0.52-1.04) mg/dL Est GFR (CKD-EPI)AfAm (>60 ml/min/1.73 sqM) Est GFR (CKD-EPI)NonAf (>60 ml/min/1.73 sqM) Glucose (74-99) mg/dL POC Glucose (mg/dL) 162 H 199 H (75-99) mg/dL POC Glu City Controller ID Stephanie Davis Lauren Calcium (8.4-10.2) mg/dL Phosphorus (2.5-4.5) mg/dL Total Bilirubin (0.2-1.3) mg/dL AST (14-36) U/L ALT (4-34) U/L Alkaline Phosphatase (38-126) U/L Total Protein (6.3-8.2) g/dL Albumin (3.5-5.0) g/dL Amylase (30-110) U/L Lipase (23-300) U/L Urine Color Urine Appearance (Clear) Urine pH (5.0-8.0) Ur Specific [place] (1.001-1.035) Urine Protein (Negative) Urine Glucose (UA) (Negative) Urine Ketones (Negative) Urine Blood (Negative) Urine Nitrite (Negative) Urine Bilirubin (Negative) Urine Urobilinogen (<2.0) mg/dL Ur Leukocyte Esterase (Negative) Urine RBC (0-5) /hpf Urine WBC (0-5) /hpf Ur Squamous Epith Cells (0-4) /hpf Hyaline Casts (0-2) /lpf Urine Mucus (None) /hpf Urine HCG, Qual (Not Detectd) Acetone, Qual (Negative) Disposition Is patient prescribed a controlled substance at d/c from ED?: No Time of Disposition: 22:32 <Darin Dominguez - Last Filed: 03/03/21 22:29> <Boston Phipps - Last Filed: 03/06/21 03:33> Clinical Impression: Diabetic ketoacidosis, Nausea & vomiting, Dehydration Disposition: ADMITTED IP TO THIS HOSP Condition: Stable
[2021-03-03] MEDS ORDERED: INSULIN REGULAR 100 UNIT in SODIUM CHLORIDE 0.9% 100 ML IV SCH (22:45)
[2021-03-03] MEDS ORDERED: METOCLOPRAMIDE 5 MG/ML 2 ML VIAL IVP STA (23:13)
[2021-03-03 23:22] LABS: Glucose,Whole Blood 288 mg/dL (75-99)
[2021-03-03] MEDS: SODIUM CHLORIDE 0.9% 1,000 ML IV SCH (23:41)
[2021-03-03 23:50] LABS: Glucose,Whole Blood 277 mg/dL (75-99)
[2021-03-04 00:15] LABS: African American GFR (CKD) >90 (>60 ml/min/1.73 sqM); Anion Gap 14 mmol/L; Blood Urea Nitrogen 18 mg/dL (7-17); Carbon Dioxide 17 mmol/L (22-30); Chloride 107 mmol/L (98-107); Glucose 307 mg/dL (74-99); Non-African American GFR(CKD) 86 (>60 ml/min/1.73 sqM); Potassium 4.4 mmol/L (3.5-5.1); Sodium 138 mmol/L (137-145)
[2021-03-04 01:03] LABS: Glucose,Whole Blood 278 mg/dL (75-99)
[2021-03-04 01:55] LABS: Glucose,Whole Blood 209 mg/dL (75-99)
[2021-03-04 02:27] LABS: Appearance,Urine Clear (Clear); Bilirubin,Urine Negative (Negative); Blood,Urine Negative (Negative); Color,Urine Yellow; Glucose,Urine (UA) 4+ (Negative); Hyaline Casts,Urine 18 /lpf (0-2); Leukocyte Esterase,Urine Negative (Negative); Mucus,Urine Rare /hpf; Nitrite,Urine Negative (Negative); PH, Urine 5.5 (5.0-8.0); Protein,Urine 1+ (Negative); RBC,Urine 3 /hpf (0-5); Specific Gravity,Urine 1.023 (1.001-1.035); Squamous Epithelial Cell,Urine <1 /hpf (0-4); Urobilinogen,Urine <2.0 mg/dL (<2.0); WBC,Urine 2 /hpf (0-5)
[2021-03-04 02:36] LABS: Ketones,Urine 3+ (Negative)
[2021-03-04] MEDS: ONDANSETRON 4 MG/2 ML VIAL IVP PRN ×2 (02:36→13:46)
[2021-03-04 02:37] LABS: Glucose,Whole Blood 176 mg/dL (75-99)
[2021-03-04] MEDS ORDERED: ONDANSETRON 4 MG/2 ML VIAL IVP STA ×2 (02:48→02:49)
[2021-03-04 04:02] LABS: Glucose,Whole Blood 135 mg/dL (75-99)
[2021-03-04 04:29] LABS: African American GFR (CKD) >90 (>60 ml/min/1.73 sqM); Anion Gap 9 mmol/L; Blood Urea Nitrogen 17 mg/dL (7-17); Carbon Dioxide 22 mmol/L (22-30); Chloride 110 mmol/L (98-107); Glucose 144 mg/dL (74-99); Non-African American GFR(CKD) >90 (>60 ml/min/1.73 sqM); Phosphorus 2.2 mg/dL (2.5-4.5); Potassium 3.7 mmol/L (3.5-5.1); Sodium 141 mmol/L (137-145)
[2021-03-04] MEDS ORDERED: INSULIN DETEMIR (LEVEMIR) 100 UNIT/ML SYR SQ SCH ×2 (04:45→21:00)
[2021-03-04] MEDS ORDERED: METOCLOPRAMIDE 5 MG/ML 2 ML VIAL IVP STA (04:49)
[2021-03-04] MEDS ORDERED: MORPHINE SULFATE 2 MG/ML SYRINGE IVP STA (04:49)
[2021-03-04] MEDS ORDERED: diphenhydrAMINE 50 MG/ML 1 ML VIAL IVP STA (04:51)
--- NOTE | 2021-03-04 05:00 | P.HPIM ---
History of Present Illness H&P Date: 03/03/21 Chief Complaint: nausea vomiting 25-year-old female with diabetes mellitus insulin-dependent, Galilea's thyroiditis, asthma intermittent Patient comes in today with 2 day history of not feeling well she got tested for Covid for symptoms that started about a week ago with core muscle body aches and occasional nausea vomiting in coughing some low-grade fevers denies any diarrhea denies any changes in smell or taste sensation denies any chest pain or trouble breathing. She got the results of Covid positive today this was confirmed at our facility. Upon performing further workup patient was found to be in DKA complaining of some abdominal pain she denies any bloody bowel movements or bloody vomiting however she said due to forceful repeat vomiting she start seeing some streaks of blood in her throw up. In the ED she was given Regeneron and was started on insulin drip for DKA pathway Patient has been in DKA in the past she claims that she is compliant with her insulin, despite her vomiting and abdominal pain she was still taking her insulin at she denies any urinary changes or bowel habit changes. Review of Systems Pertinent positives as noted in HPI. All other systems were reviewed and are negative Past Medical History Past Medical History: Diabetes Mellitus, Thyroid Disorder Additional Past Medical History / Comment(s): galilea History of Any Multi-Drug Resistant Organisms: None Reported Past Surgical History: No Surgical Hx Reported Additional Past Surgical History / Comment(s): d and c , left groin Past Psychological History: Anxiety Smoking Status: Former smoker Past Alcohol Use History: None Reported Past Drug Use History: None Reported - Past Family History Family Family Medical History: No Reported History Medications and Allergies Home Medications Medication Instructions Recorded Confirmed Type Levothyroxine Sodium [Synthroid] 200 mcg PO DAILY 06/30/17 03/03/21 History INSULIN LISPRO (humaLOG) [humaLOG] See Protocol SQ AC-TID 03/03/21 03/03/21 H istory Insulin Glargine [Lantus Vial] 20 units SQ HS 03/03/21 03/03/21 History Allergies Allergy/AdvReac Type Severity Reaction Status Date / Time [facility]aclor [[facility]] Allergy Family Verified 03/03/21 20:51 history Physical Exam Vitals: Vital Signs Temp Pulse Resp BP Pulse Ox 03/04/21 04:00 100.1 F H 110 H 20 120/74 03/04/21 00:56 100.3 F H 111 H 18 134/80 98 03/03/21 22:37 100.4 F H 105 H 18 110/73 100 03/03/21 18:05 98.6 F 109 H 20 94/66 98 Intake and Output 03/03/21 03/03/21 03/04/21 14:59 22:59 06:59 Intake Total 37.768 Balance 37.768 Intake: Intake, IV Titration 37.768 Amount Insulin Regular 100 unit 37.768 In Sodium Chloride 0.9% 100 ml @ 0.1 UNITS/KG/HR 8.017 mls/hr IV .[id number] [facility] Rx#:[id number] Other: Weight 79.379 kg Constitutional: No acute distress, conversant, pleasant Eyes: Anicteric sclerae, moist conjunctiva, Pupils equal round reactive to light ENMT: NC/AT Oropharynx clear, no erythema, or exudates Neck: Supple, FROM, no masses, or JVD No carotid bruits No thyromegaly Lungs: Clear to auscultation Clear to percussion Normal respiratory effort, no accessory muscle use Cardiovascular: Heart regular in rate and rhythm, No murmurs, gallops, or rubs No peripheral edema Abdominal: Soft Nontender, no guarding, rebound or rigidity Abdomen moving with respiration Normoactive bowel sounds No hepatomegaly, No splenomegaly No palpable mass No abdominal wall hernia noted Skin: Normal temperature, tone, texture, turgor No induration No subcutaneous nodules No rash, lesions No ulcers Extremities: No digital cyanosis No clubbing Pedal pulses intact and symmetrical Radial pulses intact and symmetrical No calf tenderness Psychiatric: Alert and oriented to person, place and time Appropriate affect fair judgement Neuro Muscles Strength 5/5 in all 4 extremities Sensation to light touch grossly present throughout Cranial nerves II-XII grossly intact No focal sensory deficits Lymphatics: no palpable cervical or supraclavicular , or inguinal lymph nodes Results CBC & Chem 7: 03/03/21 19:59 03/04/21 Unknown Labs: Abnormal Lab Results - Last 24 Hours (Table) 03/03/21 03/03/21 03/03/21 Range/Units 19:59 19:59 21:39 Plt Count 149 L (150-450) k/uL Lymphocytes # 0.9 L (1.0-4.8) k/uL Chloride (98-107) mmol/L Carbon Dioxide 17 L (22-30) mmol/L BUN 21 H (7-17) mg/dL Creatinine 1.18 H (0.52-1.04) mg/dL Glucose 416 H (74-99) mg/dL POC Glucose (mg/dL) 335 H (75-99) mg/dL Phosphorus (2.5-4.5) mg/dL AST 94 H (14-36) U/L ALT 56 H (4-34) U/L Urine Protein (Negative) Urine Glucose (UA) (Negative) Urine Ketones (Negative) Hyaline Casts (0-2) /lpf Urine Mucus (None) /hpf 03/03/21 03/03/21 03/03/21 Range/Units 23:18 23:49 23:50 Plt Count (150-450) k/uL Lymphocytes # (1.0-4.8) k/uL Chloride (98-107) mmol/L Carbon Dioxide 17 L (22-30) mmol/L BUN 18 H (7-17) mg/dL Creatinine (0.52-1.04) mg/dL Glucose 307 H (74-99) mg/dL POC Glucose (mg/dL) 288 H 277 H (75-99) mg/dL Phosphorus (2.5-4.5) mg/dL AST (14-36) U/L ALT (4-34) U/L Urine Protein (Negative) Urine Glucose (UA) (Negative) Urine Ketones (Negative) Hyaline Casts (0-2) /lpf Urine Mucus (None) /hpf 03/04/21 03/04/21 03/04/21 Range/Units 00:53 01:41 01:49 Plt Count (150-450) k/uL Lymphocytes # (1.0-4.8) k/uL Chloride (98-107) mmol/L Carbon Dioxide (22-30) mmol/L BUN (7-17) mg/dL Creatinine (0.52-1.04) mg/dL Glucose (74-99) mg/dL POC Glucose (mg/dL) 278 H 209 H (75-99) mg/dL Phosphorus (2.5-4.5) mg/dL AST (14-36) U/L ALT (4-34) U/L Urine Protein 1+ H (Negative) Urine Glucose (UA) 4+ H (Negative) Urine Ketones 3+ H (Negative) Hyaline Casts 18 H (0-2) /lpf Urine Mucus Rare H (None) /hpf 03/04/21 03/04/21 03/04/21 Range/Units 02:34 04:00 Unknown Plt Count (150-450) k/uL Lymphocytes # (1.0-4.8) k/uL Chloride 110 H (98-107) mmol/L Carbon Dioxide (22-30) mmol/L BUN (7-17) mg/dL Creatinine (0.52-1.04) mg/dL Glucose 144 H (74-99) mg/dL POC Glucose (mg/dL) 176 H 135 H (75-99) mg/dL Phosphorus 2.2 L (2.5-4.5) mg/dL AST (14-36) U/L ALT (4-34) U/L Urine Protein (Negative) Urine Glucose (UA) (Negative) Urine Ketones (Negative) Hyaline Casts (0-2) /lpf Urine Mucus (None) /hpf Assessment and Plan Assessment: DKA Nothing by mouth Aggressive IV fluid hydration Insulin drip Monitor electrolytes, anion gap and bicarb Transition to D5 0.45 fluids per protocol once blood sugar less than 300 until gap and bicarb corrected line Intractable nausea vomiting Symptomatic control Covid positive Patient received monoclonal antibody Patient not requiring oxygen Hypothyroidism with history of Galilea's thyroiditis Resume levothyroxine DVT prophylaxis heparin subcu 3 times a day Patient is full code Anticipated discharge home Anticipated length of stay less than 2 midnights
[2021-03-04 05:04] LABS: Glucose,Whole Blood 116 mg/dL (75-99)
[2021-03-04] MEDS: SODIUM CHLORIDE 0.9% 1,000 ML IV SCH ×3 (05:10→23:11)
[2021-03-04 05:14] LABS: Basophils % (A) 0 %; Eosinophils % (A) 0 %; HCT 37.6 % (34.0-46.0); HGB 12.7 gm/dL (11.4-16.0); Lymphocytes # (A) 1.3 k/uL (1.0-4.8); Lymphocytes % (A) 14 %; MCH 31.4 pg (25.0-35.0); MCHC 33.9 g/dL (31.0-37.0); MCV 92.8 fL (80.0-100.0); Mean Platelet Volume 8.6; Monocytes # (A) 0.2 k/uL (0-1.0); Monocytes % (A) 2 %; Neutrophils # (A) 7.7 k/uL (1.3-7.7); Neutrophils % (A) 82 %; Platelet Count 151 k/uL (150-450); RBC 4.05 m/uL (3.80-5.40); RDW 12.1 % (11.5-15.5); WBC 9.4 k/uL (3.8-10.6)
[2021-03-04 05:30] LABS: INR 0.8 (<1.2); Partial Thromboplastin Time 23.2 sec (22.0-30.0); Prothrombin Time 9.4 sec (9.0-12.0)
[2021-03-04 05:38] LABS: African American GFR (CKD) >90 (>60 ml/min/1.73 sqM); Anion Gap 12 mmol/L; Blood Urea Nitrogen 16 mg/dL (7-17); C Reactive Protein 5.7 mg/dL (<1.0); Carbon Dioxide 19 mmol/L (22-30); Chloride 110 mmol/L (98-107); Glucose 120 mg/dL (74-99); LDH 819 U/L (313-618); Non-African American GFR(CKD) >90 (>60 ml/min/1.73 sqM); Potassium 3.7 mmol/L (3.5-5.1); Sodium 141 mmol/L (137-145)
[2021-03-04 06:20] LABS: Glucose,Whole Blood 162 mg/dL (75-99)
[2021-03-04] MEDS: LEVOTHYROXINE 100 MCG TAB PO SCH (06:53)
[2021-03-04 07:55] LABS: Glucose,Whole Blood 199 mg/dL (75-99)
[2021-03-04 09:10] LABS: Erythrocyte Sedimentation Rate 62 mm/hr (0-20)
[2021-03-04] MEDS: INSULIN ASPART (NovoLOG) 100 UNIT/ML VIAL SQ SCH ×4 (09:40→22:00)
[2021-03-04] MEDS: HEPARIN SODIUM,PORCINE/PF 5,000 UNIT/0.5 ML SYRINGE SQ SCH ×3 (09:41→22:57)
--- NOTE | 2021-03-04 12:05 | P.PN ---
Subjective Progress Note Date: 03/04/21 Principal diagnosis: COVID with DKA Patient seen and examined at bedside. Patient denies chest pain, shortness of breath, nausea, vomiting, fever or chills. Nausea has subsided. Sugars have improved. Objective - Vital Signs Vital signs: Vital Signs Temp 100.1 F H 03/04/21 04:00 Pulse 93 03/04/21 06:00 Resp 17 03/04/21 06:00 BP 120/74 03/04/21 04:00 Pulse Ox 98 03/04/21 00:56 Intake & Output 03/03/21 03/04/21 03/04/21 18:59 06:59 18:59 Intake Total 37.768 Balance 37.768 Weight 79.379 kg Intake: Intake, IV Titration 37.768 Amount Insulin Regular 100 unit 37.768 In Sodium Chloride 0.9% 100 ml @ 0.1 UNITS/KG/HR 8.017 mls/hr IV .[id number] [facility] Rx#:[id number] - Exam General: [non toxic], [no distress], [appears at stated age] Derm: [warm], [dry] Head: [atraumatic], [normocephalic], [symmetric] Eyes: [EOMI], [no lid lag], [anicteric sclera] Mouth: [no lip lesion], [mucus membranes moist] Cardiovascular: [S1S2 reg], [no murmur], [positive posterior tibial pulse bilateral], Lungs: [CTA bilateral], [no rhonchi, no rales] , [no accessory muscle use] Abdominal: [soft], [ nontender to palpation], [no guarding], [no appreciable organomegaly] Ext: [no gross muscle atrophy], [no edema], [no contractures] Neuro: [ CN II-XI grossly intact], [no focal neuro deficits] Psych: [Alert], [oriented], [appropriate affect] - Labs CBC & Chem 7: 03/04/21 Unknown 03/04/21 Unknown Labs: Abnormal Lab Results - Last 24 Hours (Table) 03/03/21 03/03/21 03/03/21 Range/Units 19:59 19:59 21:39 Plt Count 149 L (150-450) k/uL Lymphocytes # 0.9 L (1.0-4.8) k/uL ESR (0-20) mm/hr Chloride (98-107) mmol/L Carbon Dioxide 17 L (22-30) mmol/L BUN 21 H (7-17) mg/dL Creatinine 1.18 H (0.52-1.04) mg/dL Glucose 416 H (74-99) mg/dL POC Glucose (mg/dL) 335 H (75-99) mg/dL Calcium (8.4-10.2) mg/dL Phosphorus (2.5-4.5) mg/dL Ferritin (10.0-291.0) ng/mL AST 94 H (14-36) U/L ALT 56 H (4-34) U/L Lactate Dehydrogenase (313-618) U/L C-Reactive Protein (<1.0) mg/dL Procalcitonin (0.02-0.09) ng/mL Urine Protein (Negative) Urine Glucose (UA) (Negative) Urine Ketones (Negative) Hyaline Casts (0-2) /lpf Urine Mucus (None) /hpf 03/03/21 03/03/21 03/03/21 Range/Units 23:18 23:49 23:50 Plt Count (150-450) k/uL Lymphocytes # (1.0-4.8) k/uL ESR (0-20) mm/hr Chloride (98-107) mmol/L Carbon Dioxide 17 L (22-30) mmol/L BUN 18 H (7-17) mg/dL Creatinine (0.52-1.04) mg/dL Glucose 307 H (74-99) mg/dL POC Glucose (mg/dL) 288 H 277 H (75-99) mg/dL Calcium (8.4-10.2) mg/dL Phosphorus (2.5-4.5) mg/dL Ferritin (10.0-291.0) ng/mL AST (14-36) U/L ALT (4-34) U/L Lactate Dehydrogenase (313-618) U/L C-Reactive Protein (<1.0) mg/dL Procalcitonin (0.02-0.09) ng/mL Urine Protein (Negative) Urine Glucose (UA) (Negative) Urine Ketones (Negative) Hyaline Casts (0-2) /lpf Urine Mucus (None) /hpf 03/04/21 03/04/21 03/04/21 Range/Units 00:53 01:41 01:49 Plt Count (150-450) k/uL Lymphocytes # (1.0-4.8) k/uL ESR (0-20) mm/hr Chloride (98-107) mmol/L Carbon Dioxide (22-30) mmol/L BUN (7-17) mg/dL Creatinine (0.52-1.04) mg/dL Glucose (74-99) mg/dL POC Glucose (mg/dL) 278 H 209 H (75-99) mg/dL Calcium (8.4-10.2) mg/dL Phosphorus (2.5-4.5) mg/dL Ferritin (10.0-291.0) ng/mL AST (14-36) U/L ALT (4-34) U/L Lactate Dehydrogenase (313-618) U/L C-Reactive Protein (<1.0) mg/dL Procalcitonin (0.02-0.09) ng/mL Urine Protein 1+ H (Negative) Urine Glucose (UA) 4+ H (Negative) Urine Ketones 3+ H (Negative) Hyaline Casts 18 H (0-2) /lpf Urine Mucus Rare H (None) /hpf 03/04/21 03/04/21 03/04/21 Range/Units 02:34 04:00 05:03 Plt Count (150-450) k/uL Lymphocytes # (1.0-4.8) k/uL ESR (0-20) mm/hr Chloride (98-107) mmol/L Carbon Dioxide (22-30) mmol/L BUN (7-17) mg/dL Creatinine (0.52-1.04) mg/dL Glucose (74-99) mg/dL POC Glucose (mg/dL) 176 H 135 H 116 H (75-99) mg/dL Calcium (8.4-10.2) mg/dL Phosphorus (2.5-4.5) mg/dL Ferritin (10.0-291.0) ng/mL AST (14-36) U/L ALT (4-34) U/L Lactate Dehydrogenase (313-618) U/L C-Reactive Protein (<1.0) mg/dL Procalcitonin (0.02-0.09) ng/mL Urine Protein (Negative) Urine Glucose (UA) (Negative) Urine Ketones (Negative) Hyaline Casts (0-2) /lpf Urine Mucus (None) /hpf 03/04/21 03/04/21 03/04/21 Range/Units 06:19 07:54 Unknown Plt Count (150-450) k/uL Lymphocytes # (1.0-4.8) k/uL ESR (0-20) mm/hr Chloride 110 H (98-107) mmol/L Carbon Dioxide (22-30) mmol/L BUN (7-17) mg/dL Creatinine (0.52-1.04) mg/dL Glucose 144 H (74-99) mg/dL POC Glucose (mg/dL) 162 H 199 H (75-99) mg/dL Calcium (8.4-10.2) mg/dL Phosphorus 2.2 L (2.5-4.5) mg/dL Ferritin (10.0-291.0) ng/mL AST (14-36) U/L ALT (4-34) U/L Lactate Dehydrogenase (313-618) U/L C-Reactive Protein (<1.0) mg/dL Procalcitonin (0.02-0.09) ng/mL Urine Protein (Negative) Urine Glucose (UA) (Negative) Urine Ketones (Negative) Hyaline Casts (0-2) /lpf Urine Mucus (None) /hpf 03/04/21 03/04/21 03/04/21 Range/Units Unknown Unknown Unknown Plt Count (150-450) k/uL Lymphocytes # (1.0-4.8) k/uL ESR 62 H (0-20) mm/hr Chloride 110 H (98-107) mmol/L Carbon Dioxide 19 L (22-30) mmol/L BUN (7-17) mg/dL Creatinine (0.52-1.04) mg/dL Glucose 120 H (74-99) mg/dL POC Glucose (mg/dL) (75-99) mg/dL Calcium 8.0 L (8.4-10.2) mg/dL Phosphorus (2.5-4.5) mg/dL Ferritin 490.0 H (10.0-291.0) ng/mL AST (14-36) U/L ALT (4-34) U/L Lactate Dehydrogenase 819 H (313-618) U/L C-Reactive Protein 5.7 H (<1.0) mg/dL Procalcitonin 0.37 H (0.02-0.09) ng/mL Urine Protein (Negative) Urine Glucose (UA) (Negative) Urine Ketones (Negative) Hyaline Casts (0-2) /lpf Urine Mucus (None) /hpf Assessment and Plan Assessment: DKA resolved IV fluid hydration Continue insulin sub q with sliding scale Monitor electrolytes, anion gap and bicarb Advance diet as tolerated Check labs Intractable nausea vomiting resolved Symptomatic control Covid positive Patient received monoclonal antibody Patient not requiring oxygen Hypothyroidism with history of Chela's thyroiditis Resume levothyroxine DVT prophylaxis heparin subcu 3 times a day Patient is full code Anticipated discharge home n the AM if tolerating diet Anticipated length of stay less than 2 midnights
[2021-03-04 12:34] LABS: Basophils % (A) 0 %; Eosinophils % (A) 0 %; HCT 38.6 % (34.0-46.0); HGB 12.6 gm/dL (11.4-16.0); Lymphocytes # (A) 1.9 k/uL (1.0-4.8); Lymphocytes % (A) 25 %; MCH 30.8 pg (25.0-35.0); MCHC 32.8 g/dL (31.0-37.0); MCV 94.1 fL (80.0-100.0); Mean Platelet Volume 8.8; Monocytes # (A) 0.2 k/uL (0-1.0); Monocytes % (A) 2 %; Neutrophils # (A) 5.6 k/uL (1.3-7.7); Neutrophils % (A) 71 %; Platelet Count 151 k/uL (150-450); RDW 12.8 % (11.5-15.5); WBC 7.8 k/uL (3.8-10.6)
[2021-03-04 13:00] LABS: ALT 42 U/L (4-34); AST 78 U/L (14-36); African American GFR (CKD) >90 (>60 ml/min/1.73 sqM); Alkaline Phosphatase 75 U/L (38-126); Anion Gap 7 mmol/L; Blood Urea Nitrogen 13 mg/dL (7-17); Calcium 7.4 mg/dL (8.4-10.2); Carbon Dioxide 21 mmol/L (22-30); Chloride 111 mmol/L (98-107); Glucose 268 mg/dL (74-99); Non-African American GFR(CKD) >90 (>60 ml/min/1.73 sqM); Potassium 4.2 mmol/L (3.5-5.1); Sodium 139 mmol/L (137-145); Total Bilirubin 0.2 mg/dL (0.2-1.3); Total Protein 5.6 g/dL (6.3-8.2)
[2021-03-04 15:23] LABS: Glucose,Whole Blood 244 mg/dL (75-99)
[2021-03-04] MEDS ORDERED: METOCLOPRAMIDE 5 MG/ML 2 ML VIAL IVP PRN (16:06)
[2021-03-04] MEDS ORDERED: MORPHINE SULFATE 2 MG/ML SYRINGE IVP PRN (17:13)
[2021-03-04 18:01] LABS: Glucose,Whole Blood 290 mg/dL (75-99)
[2021-03-04 21:56] LABS: Glucose,Whole Blood 198 mg/dL (75-99)
[2021-03-05] MEDS: SODIUM CHLORIDE 0.9% 1,000 ML IV SCH ×4 (01:59→16:30)
[2021-03-05] MEDS: LEVOTHYROXINE 100 MCG TAB PO SCH (05:48)
[2021-03-05 05:52] LABS: Glucose,Whole Blood 178 mg/dL (75-99)
[2021-03-05] MEDS: INSULIN ASPART (NovoLOG) 100 UNIT/ML VIAL SQ SCH ×3 (07:20→17:20)
[2021-03-05] MEDS: HEPARIN SODIUM,PORCINE/PF 5,000 UNIT/0.5 ML SYRINGE SQ SCH ×2 (07:21→16:30)
[2021-03-05] MEDS ORDERED: FAMOTIDINE 20 MG TAB PO SCH (09:00)
[2021-03-05 10:01] VITALS: RESP 18
[2021-03-05 10:03] LABS: Basophils # (A) 0 X 10*3/uL (0.00-0.10); Basophils % (A) 0 %; Eosinophils # (A) 0 X 10*3/uL (0.04-0.35); Eosinophils % (A) 0 %; HCT 38.2 % (37.2-46.3); HGB 12.4 g/dL (12.0-15.0); Lymphocytes # (A) 3.04 X 10*3/uL (0.90-5.00); Lymphocytes % (A) 47.1 %; MCH 30.8 pg (27.0-32.0); MCHC 32.5 g/dL (32.0-37.0); MCV 94.8 fL (80.0-97.0); Mean Platelet Volume 11.6 fL (9.5-12.2); Monocytes # (A) 0.36 X 10*3/uL (0.20-1.00); Monocytes % (A) 5.6 %; Neutrophils # (A) 3.02 X 10*3/uL (1.80-7.70); Neutrophils % (A) 46.8 %; Platelet Count 160 X 10*3/uL (140-440); RBC 4.03 X 10*6/uL (4.10-5.20); RDW 12.6 % (11.5-14.5); WBC 6.45 X 10*3/uL (4.50-10.00)
[2021-03-05 11:11] LABS: Albumin 3.4 g/dL (3.8-4.9); Albumin/Globulin Ratio 1.48 (1.60-3.17); Anion Gap 18.4 mmol/L (4.00-12.00); BUN/Creat Ratio 9.33 Ratio (12.00-20.00); Blood Urea Nitrogen 8.4 mg/dL (9.0-27.0); Calcium 7.7 mg/dL (8.7-10.3); Carbon Dioxide 16.6 mmol/L (21.6-31.8); Globulin 2.3 g/dL (1.6-3.3); Non-African American GFR(CKD) 88.9 (60.0-200.0); Potassium 4.3 mmol/L (3.5-5.5); Total Bilirubin 0.2 mg/dL (0.30-1.20); Total Protein 5.7 g/dL (6.2-8.2)
[2021-03-05 11:27] LABS: Glucose,Whole Blood 142 mg/dL (75-99)
[2021-03-05] MEDS ORDERED: IBUPROFEN 600 MG TAB PO STA (12:18)
--- NOTE | 2021-03-05 13:03 | P.DS ---
Providers Date of admission: 03/04/21 09:35 Expected date of discharge: 03/05/21 Attending physician: Navdeep Calero MD Primary care physician: Gerardo Ambrocio Hospital Course: Gray 25-year-old female with past medical history significant for insulin- dependent diabetes mellitus and presented to the emergency room with flulike symptoms. Patient was evaluated and was found to be in DKA. She was admitted to the hospital and treated with aggressive IV fluid hydration, insulin drip, and electrolyte replacement. DKA protocol. Patient was also given Regeneron antibodies in the ER as she tested positive for COVID-19. Patient was otherwise denying any shortness of breath. She was not hypoxic. Her overall condition improved significantly throughout her hospital stay. Lab work also improved. Patient will be discharged home in a stable condition. She will resume her home dose of insulin as prescribed. Follow up with her primary care physician. Patient Condition at Discharge: Stable Plan - Discharge Summary Discharge Rx Participant: No New Discharge Prescriptions: Continue Levothyroxine Sodium [Synthroid] 200 mcg PO DAILY INSULIN LISPRO (humaLOG) [humaLOG] See Protocol SQ AC-TID Insulin Glargine [Lantus Vial] 20 units SQ HS Discharge Medication List Levothyroxine Sodium [Synthroid] 200 mcg PO DAILY 06/30/17 [History] INSULIN LISPRO (humaLOG) [humaLOG] See Protocol SQ AC-TID 03/03/21 [History] Insulin Glargine [Lantus Vial] 20 units SQ HS 03/03/21 [History] Follow up Appointment(s)/Referral(s): Gerardo Ambrocio MD [Primary Care Provider] - 1-2 days (office closed at time of discharge. Please call to schedule appointment ) Discharge Disposition: HOME SELF-CARE
[2021-03-05 13:34] VITALS: BMI 28.0
[2021-03-05 15:32] VITALS: BP 97/63; PULSE 81; TEMP 98.3
[2021-03-05 17:02] LABS: Glucose,Whole Blood 321 mg/dL (75-99)
== END 2021-03-05 18:22 | disposition home or self-care (01) | DRG 637 ==
LOC: EC 18:03 → 3SCARD 22:32 → OBSVTOIN 03-04 09:35 → 3SCARD 03-04 12:17 → 5NMEDONC 03-04 13:52 → 4SSUR 03-04 17:09
PROVIDERS: ADMIT Internal Medicine; ATTEND Internal Medicine
PROC: XW033G6 Introduction of REGN-COV2 Monoclonal Antibody into Peripheral Vein, Percutaneous Approach, New Technology Group 6 (ICD-10-PCS; principal; 2021-03-03)
DX: E10.10 Type 1 diabetes mellitus with ketoacidosis without coma (principal); U07.1 COVID-19; Z79.4 Long term (current) use of insulin; E06.3 Autoimmune thyroiditis; E86.0 Dehydration; J45.20 Mild intermittent asthma, uncomplicated; F41.9 Anxiety disorder, unspecified; Z79.890 Hormone replacement therapy; Z88.1 Allergy status to other antibiotic agents; Z87.891 Personal history of nicotine dependence
CPT/HCPCS: 36415; 80048; 80051; 80053; 81001; 81025; 82009; 82150; 82565; 82728; 82947; 83615; 83690; 84100; 84145; 84439; 84443; 84520; 85025; 85379; 85610; 85652; 85730; 86140; 93005; 96361; 96374; 96376; 99284

== ENCOUNTER 2021-03-08 13:32 | Inpatient (IN) | payer OTHER ==
[2021-03-08] MEDS ORDERED: SODIUM CHLORIDE 0.9% 2,000 ML IV STA (13:52)
[2021-03-08] MEDS ORDERED: ONDANSETRON 4 MG/2 ML VIAL IVP STA (13:53)
[2021-03-08 13:56] LABS: Glucose,Whole Blood 316 mg/dL (75-99)
[2021-03-08] MEDS ORDERED: ACETAMINOPHEN TAB 500 MG TAB PO STA (14:01)
[2021-03-08] MEDS ORDERED: IBUPROFEN 600 MG TAB PO STA (14:01)
--- NOTE | 2021-03-08 14:02 | ED ---
General Adult HPI - General Chief complaint: Recheck/Abnormal Lab/Rx Stated complaint: covid+, possible dehydration-revisit Time Seen by Provider: 03/08/21 13:48 Source: patient Mode of arrival: ambulatory Limitations: no limitations - History of Present Illness Initial comments: 25-year-old female with a past medical history of IDDM, asthma presents to the emergency room for nausea vomiting. Patient reports that she was diagnosed with coronavirus 6 days ago. States that she had symptoms a few days before that. Patient states she was admitted for DKA and released a couple days ago. She states that the past few days she has not been able to keep much down and hasn't felt well. Patient is concerned she could be dehydrated. Patient has no other complaints at this time including shortness of breath, chest pain, abdominal pain, headache, or visual changes. - Related Data Home Medications Medication Instructions Recorded Confirmed Levothyroxine Sodium [Synthroid] 200 mcg PO DAILY 06/30/17 03/03/21 INSULIN LISPRO (humaLOG) [humaLOG] See Protocol SQ AC-TID 03/03/21 03/03/21 Insulin Glargine [Lantus Vial] 20 units SQ HS 03/03/21 03/03/21 Allergies Allergy/AdvReac Type Severity Reaction Status Date / Time cefaclor [From Ceclor] Allergy Family Verified 03/08/21 13:44 history Review of Systems ROS Statement: Those systems with pertinent positive or pertinent negative responses have been documented in the HPI. ROS Other: All systems not noted in ROS Statement are negative. Past Medical History Past Medical History: Asthma, Diabetes Mellitus, Thyroid Disorder Additional Past Medical History / Comment(s): silvio calero History of Any Multi-Drug Resistant Organisms: C-DIFF Date of last positivie culture/infection: 2017 MDRO Source:: stool Past Surgical History: No Surgical Hx Reported Additional Past Surgical History / Comment(s): d and c , left groin Past Anesthesia/Blood Transfusion Reactions: No Reported Reaction Past Psychological History: Anxiety Smoking Status: Former smoker Past Alcohol Use History: None Reported Past Drug Use History: None Reported - Past Family History Family Family Medical History: No Reported History General Exam Limitations: no limitations General appearance: alert, in no apparent distress Head exam: Present: atraumatic Eye exam: Present: normal appearance, PERRL, EOMI. Absent: scleral icterus, conjunctival injection ENT exam: Present: normal exam, mucous membranes moist Neck exam: Present: normal inspection, full ROM. Absent: tenderness Respiratory exam: Present: normal lung sounds bilaterally. Absent: respiratory distress, wheezes Cardiovascular Exam: Present: regular rate, normal rhythm, normal heart sounds GI/Abdominal exam: Present: soft, normal bowel sounds. Absent: distended, tenderness Neurological exam: Present: alert Course Vital Signs 03/08/21 03/08/21 03/08/21 13:41 14:27 15:16 Temperature 101.0 F H 99 F Pulse Rate 116 H 94 93 Respiratory 18 20 20 Rate Blood Pressure 108/71 111/77 105/70 O2 Sat by Pulse 93 L 97 97 Oximetry Medical Decision Making - Medical Decision Making Vitals are stable although patient is febrile. Patient does have coronavirus. Patient is vomiting in the emergency room. Laboratory evaluation was obtained. She doesn't a mild leukocytosis likely secondary to vomiting. CMP does show hyperglycemia of 366 but is otherwise unremarkable. CO2 is 30. Anion gap 12. Urinalysis did show 4+ glucose with 3+ ketones. Positive acetone. Chest x-ray does show new patchy pneumonia which is likely related to coronavirus. Patient already received 3 Matt. Patient was given 2 L of normal saline. I did recheck her glucose and has increased to 425. Contacted Dr. Calero who did request giving 10 units subcu and rechecking in 2 hours. I did speak with Kelly COE who will call him 2 hours after rechecking her glucose. Patient will be admitted. - Lab Data Result diagrams: 03/08/21 14:00 03/08/21 14:00 Lab Results 03/08/21 03/08/21 03/08/21 Range/Units 13:55 14:00 14:00 WBC 12.8 H (3.8-10.6) k/uL RBC 4.06 (3.80-5.40) m/uL Hgb 12.4 (11.4-16.0) gm/dL Hct 37.4 (34.0-46.0) % MCV 92.1 (80.0-100.0) fL MCH 30.5 (25.0-35.0) pg MCHC 33.1 (31.0-37.0) g/dL RDW 11.7 (11.5-15.5) % Plt Count 294 (150-450) k/uL MPV 8.6 Neutrophils % 86 % Lymphocytes % 8 % Monocytes % 5 % Eosinophils % 0 % Basophils % 0 % Neutrophils # 11.0 H (1.3-7.7) k/uL Lymphocytes # 1.0 (1.0-4.8) k/uL Monocytes # 0.6 (0-1.0) k/uL Eosinophils # 0.0 (0-0.7) k/uL Basophils # 0.0 (0-0.2) k/uL Sodium 134 L (137-145) mmol/L Potassium 4.0 (3.5-5.1) mmol/L Chloride 92 L (98-107) mmol/L Carbon Dioxide 30 (22-30) mmol/L Anion Gap 12 mmol/L BUN 12 (7-17) mg/dL Creatinine 0.82 (0.52-1.04) mg/dL Est GFR (CKD-EPI)AfAm >90 (>60 ml/min/1.73 sqM) Est GFR (CKD-EPI)NonAf >90 (>60 ml/min/1.73 sqM) Glucose 366 H (74-99) mg/dL POC Glucose (mg/dL) 316 H (75-99) mg/dL POC Glu [employer] ID [place] Calcium 8.6 (8.4-10.2) mg/dL Magnesium 1.9 (1.6-2.3) mg/dL Total Bilirubin 0.9 (0.2-1.3) mg/dL AST 32 (14-36) U/L ALT 27 (4-34) U/L Alkaline Phosphatase 95 (38-126) U/L Total Protein 6.3 (6.3-8.2) g/dL Albumin 3.5 (3.5-5.0) g/dL Urine Color Urine Appearance (Clear) Urine pH (5.0-8.0) Ur Specific [place] (1.001-1.035) Urine Protein (Negative) Urine Glucose (UA) (Negative) Urine Ketones (Negative) Urine Blood (Negative) Urine Nitrite (Negative) Urine Bilirubin (Negative) Urine Urobilinogen (<2.0) mg/dL Ur Leukocyte Esterase (Negative) Urine RBC (0-5) /hpf Urine WBC (0-5) /hpf Ur Squamous Epith Cells (0-4) /hpf Hyaline Casts (0-2) /lpf Urine Mucus (None) /hpf Urine HCG, Qual (Not Detectd) Acetone, Qual Positive (Negative) 03/08/21 03/08/21 03/08/21 Range/Units 15:16 15:16 16:00 WBC (3.8-10.6) k/uL RBC (3.80-5.40) m/uL Hgb (11.4-16.0) gm/dL Hct (34.0-46.0) % MCV (80.0-100.0) fL MCH (25.0-35.0) pg MCHC (31.0-37.0) g/dL RDW (11.5-15.5) % Plt Count (150-450) k/uL MPV Neutrophils % % Lymphocytes % % Monocytes % % Eosinophils % % Basophils % % Neutrophils # (1.3-7.7) k/uL Lymphocytes # (1.0-4.8) k/uL Monocytes # (0-1.0) k/uL Eosinophils # (0-0.7) k/uL Basophils # (0-0.2) k/uL Sodium (137-145) mmol/L Potassium (3.5-5.1) mmol/L Chloride (98-107) mmol/L Carbon Dioxide (22-30) mmol/L Anion Gap mmol/L BUN (7-17) mg/dL Creatinine (0.52-1.04) mg/dL Est GFR (CKD-EPI)AfAm (>60 ml/min/1.73 sqM) Est GFR (CKD-EPI)NonAf (>60 ml/min/1.73 sqM) Glucose (74-99) mg/dL POC Glucose (mg/dL) 425 H (75-99) mg/dL POC Glu [employer] ID [place] Calcium (8.4-10.2) mg/dL Magnesium (1.6-2.3) mg/dL Total Bilirubin (0.2-1.3) mg/dL AST (14-36) U/L ALT (4-34) U/L Alkaline Phosphatase (38-126) U/L Total Protein (6.3-8.2) g/dL Albumin (3.5-5.0) g/dL Urine Color Yellow Urine Appearance Cloudy H (Clear) Urine pH 6.0 (5.0-8.0) Ur Specific [place] 1.031 (1.001-1.035) Urine Protein 2+ H (Negative) Urine Glucose (UA) 4+ H (Negative) Urine Ketones 3+ H (Negative) Urine Blood Small H (Negative) Urine Nitrite Negative (Negative) Urine Bilirubin Negative (Negative) Urine Urobilinogen 2.0 (<2.0) mg/dL Ur Leukocyte Esterase Negative (Negative) Urine RBC 4 (0-5) /hpf Urine WBC 19 H (0-5) /hpf Ur Squamous Epith Cells 1 (0-4) /hpf Hyaline Casts 33 H (0-2) /lpf Urine Mucus Many H (None) /hpf Urine HCG, Qual Not Detected (Not Detectd) Acetone, Qual (Negative) Disposition Clinical Impression: DKA (diabetic ketoacidosis), Nausea & vomiting, Hyperglycemia, Pneumonia, COVID Disposition: ADMITTED IP TO THIS HOSP Is patient prescribed a controlled substance at d/c from ED?: No Referrals: Gerardo Ambrocio MD [Primary Care Provider] - 1-2 days Time of Disposition: 16:50
[2021-03-08 14:18] LABS: Basophils % (A) 0 %; Eosinophils % (A) 0 %; HCT 37.4 % (34.0-46.0); HGB 12.4 gm/dL (11.4-16.0); Lymphocytes % (A) 8 %; MCH 30.5 pg (25.0-35.0); MCHC 33.1 g/dL (31.0-37.0); MCV 92.1 fL (80.0-100.0); Mean Platelet Volume 8.6; Monocytes # (A) 0.6 k/uL (0-1.0); Monocytes % (A) 5 %; Neutrophils % (A) 86 %; Platelet Count 294 k/uL (150-450); RBC 4.06 m/uL (3.80-5.40); RDW 11.7 % (11.5-15.5); WBC 12.8 k/uL (3.8-10.6)
[2021-03-08 14:36] LABS: ALT 27 U/L (4-34); AST 32 U/L (14-36); African American GFR (CKD) >90 (>60 ml/min/1.73 sqM); Albumin 3.5 g/dL (3.5-5.0); Alkaline Phosphatase 95 U/L (38-126); Anion Gap 12 mmol/L; Blood Urea Nitrogen 12 mg/dL (7-17); Calcium 8.6 mg/dL (8.4-10.2); Carbon Dioxide 30 mmol/L (22-30); Chloride 92 mmol/L (98-107); Glucose 366 mg/dL (74-99); Magnesium 1.9 mg/dL (1.6-2.3); Non-African American GFR(CKD) >90 (>60 ml/min/1.73 sqM); Sodium 134 mmol/L (137-145); Total Bilirubin 0.9 mg/dL (0.2-1.3); Total Protein 6.3 g/dL (6.3-8.2)
--- NOTE | 2021-03-08 14:51 | XR ---
EXAMINATION TYPE: XR chest 1V portable DATE OF EXAM: 03/08/2021 COMPARISON: 07/29/2016 HISTORY: Syncope. Covid. TECHNIQUE: Single view FINDINGS: There is some peripheral mild patchy pulmonary interstitial infiltrates. Heart and mediasti num are normal. There are no hilar masses. Costophrenic angles are clear. Bony thorax is intact. IMPRESSION: Bilateral peripheral pulmonary interstitial pneumonia is new compared to old exam.
[2021-03-08 15:40] LABS: Appearance,Urine Cloudy (Clear); Bilirubin,Urine Negative (Negative); Blood,Urine Small (Negative); Color,Urine Yellow; Glucose,Urine (UA) 4+ (Negative); Hyaline Casts,Urine 33 /lpf (0-2); Leukocyte Esterase,Urine Negative (Negative); Mucus,Urine Many /hpf; Nitrite,Urine Negative (Negative); Protein,Urine 2+ (Negative); RBC,Urine 4 /hpf (0-5); Specific Gravity,Urine 1.031 (1.001-1.035); Squamous Epithelial Cell,Urine 1 /hpf (0-4); WBC,Urine 19 /hpf (0-5)
[2021-03-08 15:44] LABS: Ketones,Urine 3+ (Negative)
[2021-03-08 16:03] LABS: Glucose,Whole Blood 425 mg/dL (75-99)
[2021-03-08] MEDS ORDERED: INSULIN ASPART (NovoLOG) 100 UNIT/ML VIAL SQ STA (16:27)
[2021-03-08] MEDS ORDERED: INSULIN ASPART (NovoLOG) 100 UNIT/ML VIAL SQ ONE ×2 (16:28→19:37)
[2021-03-08] MEDS ORDERED: NALOXONE 0.4 MG/ML 1 ML VIAL IV PRN (16:43)
[2021-03-08] MEDS ORDERED: ACETAMINOPHEN TAB 325 MG TAB PO PRN (16:46)
[2021-03-08] MEDS: SODIUM CHLORIDE 0.9% 1,000 ML IV SCH (16:57)
[2021-03-08] MEDS: ONDANSETRON 4 MG/2 ML VIAL IVP PRN (18:17)
[2021-03-08 19:15] LABS: Glucose,Whole Blood 432 mg/dL (75-99)
--- NOTE | 2021-03-08 21:56 | P.HPIM ---
History of Present Illness H&P Date: 03/08/21 Chief Complaint: nausea and vomiting 25-year-old female with diabetes mellitus Currently been released from the hospital when she was diagnosed with acute Covid and DKA she was released about 3-4 days ago Since her early stage she reports that she was still having some intermittent nausea and vomiting she was worried today that she is getting dehydrated but she is unable to keep anything down decided come to the hospital for evaluation she claims to be compliant with her insulin she took her long-acting insulin this morning. She denies any fevers chills coughing chest pain shortness of breath denies any abdominal pain diarrhea or GI bleeding. However she is having repeated nausea vomiting she can't really eat or get hydrated well. For which she decided to come in In the ED workup was pretty much unremarkable except for elevated blood sugar her bicarb level and anion gap of were unremarkable Urine analysis showed ketones and, no evidence of infection. She denies any urinary symptoms she had positive acetone Review of Systems Pertinent positives as noted in HPI. All other systems were reviewed and are negative Past Medical History Past Medical History: Asthma, Diabetes Mellitus, Thyroid Disorder Additional Past Medical History / Comment(s): silvio calero History of Any Multi-Drug Resistant Organisms: C-DIFF Date of last positivie culture/infection: 2017 MDRO Source:: stool Past Surgical History: No Surgical Hx Reported Additional Past Surgical History / Comment(s): d and c , left groin Past Anesthesia/Blood Transfusion Reactions: No Reported Reaction Past Psychological History: Anxiety Smoking Status: Current every day smoker Past Alcohol Use History: None Reported Past Drug Use History: None Reported - Past Family History Family Family Medical History: No Reported History Medications and Allergies Home Medications Medication Instructions Recorded Confirmed Type Levothyroxine Sodium [Synthroid] 200 mcg PO DAILY 06/30/17 03/08/21 History INSULIN LISPRO (humaLOG) [humaLOG] See Protocol SQ AC-TID 03/03/21 03/08/21 History Insulin Glargine [Lantus Vial] 20 units SQ HS 03/03/21 03/08/21 History Ondansetron Odt [Zofran ODT] 8 mg PO TID PRN 03/08/21 03/08/21 History Allergies Allergy/AdvReac Type Severity Reaction Status Date / Time cefaclor [From Nevaeh] Allergy Family Verified 03/08/21 19:03 history Physical Exam Vitals: Vital Signs Temp Pulse Resp BP Pulse Ox 03/08/21 18:51 99 F 80 18 106/69 97 03/08/21 18:16 80 18 97 03/08/21 17:00 88 20 106/69 97 03/08/21 15:16 99 F 93 20 105/70 97 03/08/21 14:27 94 20 111/77 97 03/08/21 13:41 101.0 F H 116 H 18 108/71 93 L Intake and Output 03/08/21 03/08/21 03/08/21 06:59 14:59 22:59 Other: Weight 79.379 kg 79.379 kg Constitutional: No acute distress, conversant, pleasant Eyes: Anicteric sclerae, moist conjunctiva, Pupils equal round reactive to light ENMT: NC/AT Oropharynx clear, no erythema, or exudates Neck: Supple, FROM, no masses, or JVD No carotid bruits No thyromegaly Lungs: Clear to auscultation Clear to percussion Normal respiratory effort, no accessory muscle use Cardiovascular: Heart regular in rate and rhythm, No murmurs, gallops, or rubs No peripheral edema Abdominal: Soft Nontender, no guarding, rebound or rigidity Abdomen moving with respiration Normoactive bowel sounds No hepatomegaly, No splenomegaly No palpable mass No abdominal wall hernia noted Skin: Normal temperature, tone, texture, turgor No induration No subcutaneous nodules No rash, lesions No ulcers Extremities: No digital cyanosis No clubbing Pedal pulses intact and symmetrical Radial pulses intact and symmetrical No calf tenderness Psychiatric: Alert and oriented to person, place and time Appropriate affect fair judgement Neuro Muscles Strength 5/5 in all 4 extremities Sensation to light touch grossly present throughout Cranial nerves II-XII grossly intact No focal sensory deficits Lymphatics: no palpable cervical or supraclavicular , or inguinal lymph nodes Results CBC & Chem 7: 03/08/21 14:00 03/08/21 14:00 Labs: Abnormal Lab Results - Last 24 Hours (Table) 03/08/21 03/08/21 03/08/21 Range/Units 13:55 14:00 14:00 WBC 12.8 H (3.8-10.6) k/uL Neutrophils # 11.0 H (1.3-7.7) k/uL Sodium 134 L (137-145) mmol/L Chloride 92 L (98-107) mmol/L Glucose 366 H (74-99) mg/dL POC Glucose (mg/dL) 316 H (75-99) mg/dL Urine Appearance (Clear) Urine Protein (Negative) Urine Glucose (UA) (Negative) Urine Ketones (Negative) Urine Blood (Negative) Urine WBC (0-5) /hpf Hyaline Casts (0-2) /lpf Urine Mucus (None) /hpf 03/08/21 03/08/21 03/08/21 Range/Units 15:16 16:00 19:11 WBC (3.8-10.6) k/uL Neutrophils # (1.3-7.7) k/uL Sodium (137-145) mmol/L Chloride (98-107) mmol/L Glucose (74-99) mg/dL POC Glucose (mg/dL) 425 H 432 H (75-99) mg/dL Urine Appearance Cloudy H (Clear) Urine Protein 2+ H (Negative) Urine Glucose (UA) 4+ H (Negative) Urine Ketones 3+ H (Negative) Urine Blood Small H (Negative) Urine WBC 19 H (0-5) /hpf Hyaline Casts 33 H (0-2) /lpf Urine Mucus Many H (None) /hpf Thrombosis Risk Factor Assmnt - Choose All That Apply Any of the Below Risk Factors Present?: Yes Each Factor Represents 1 point: Obesity (BMI >25) Other Risk Factors: No Other congenital or acquired thrombophilia - If yes, enter type in comment: No Thrombosis Risk Factor Assessment Total Risk Factor Score: 1 Thrombosis Risk Factor Assessment Level: Low Risk Assessment and Plan Assessment: Hyperglycemia Intractable nausea vomiting Attending gap and bicarbonate within normal limits Positive ketones in the urine Positive acetone Patient will be given bolus subcu insulin 2 if hyperglycemia persists then we'll start the patient on insulin drip, otherwise is controlled will transition to subcu insulin per sliding scale and restart her long-acting insulin Patient given aggressive IV fluid hydration with normal saline Continue to monitor closely Symptomatic control of nausea vomiting Hypothyroidism levothyroxine Intermittent asthma DuoNeb's when necessary Recent diagnosis of Covid Denies any active symptoms Full code DVT prophylaxis heparin subcu 3 times a day Anticipated length of stay less than 2 midnights Expected discharge home in AM
[2021-03-08 22:12] LABS: Glucose,Whole Blood 286 mg/dL (75-99)
[2021-03-08] MEDS: METOCLOPRAMIDE 5 MG/ML 2 ML VIAL IVP PRN (22:24)
[2021-03-08] MEDS: INSULIN DETEMIR (LEVEMIR) 100 UNIT/ML SYR SQ SCH (22:24)
[2021-03-08] MEDS: HEPARIN SODIUM,PORCINE/PF 5,000 UNIT/0.5 ML SYRINGE SQ SCH (23:13)
[2021-03-09 02:00] LABS: Glucose,Whole Blood 196 mg/dL (75-99)
[2021-03-09] MEDS: ONDANSETRON 4 MG/2 ML VIAL IVP PRN ×3 (02:00→17:04)
[2021-03-09] MEDS: SODIUM CHLORIDE 0.9% 1,000 ML IV SCH ×4 (02:03→23:52)
[2021-03-09] MEDS: METOCLOPRAMIDE 5 MG/ML 2 ML VIAL IVP PRN ×4 (04:17→23:51)
[2021-03-09 06:16] LABS: Glucose,Whole Blood 137 mg/dL (75-99)
[2021-03-09] MEDS: LEVOTHYROXINE 100 MCG TAB PO SCH (06:42)
[2021-03-09] MEDS: INSULIN ASPART (NovoLOG) 100 UNIT/ML VIAL SQ SCH ×4 (06:42→20:19)
[2021-03-09] MEDS: HEPARIN SODIUM,PORCINE/PF 5,000 UNIT/0.5 ML SYRINGE SQ SCH ×3 (09:10→23:51)
[2021-03-09 11:50] LABS: Glucose,Whole Blood 134 mg/dL (75-99)
[2021-03-09 11:55] LABS: C Reactive Protein 14.8 mg/dL (<1.0)
[2021-03-09 13:45] VITALS: BMI 27.6
--- NOTE | 2021-03-09 14:14 | P.PN ---
Subjective Progress Note Date: 03/09/21 Principal diagnosis: covid 25-year-old female with diabetes mellitus 1, was recently released from the hospital 3-4 days ago when she was diagnosed with acute Covid and DKA. Patient came back for intractable nausea and vomiting. She could not hold anything down. She claims to be compliant with her insulin she took her long-acting insulin. She denies any fevers chills coughing chest pain shortness of breath denies any abdominal pain diarrhea or GI bleeding. In the ED workup was pretty much unremarkable except for elevated blood sugar her bicarb level and anion gap of were unremarkable Urine analysis showed ketones and, no evidence of infection. She denies any urinary symptoms she had positive acetone. 03/09/21: Still feeling nauseous despite antiemetics. Also had a fever this morning. No chest pain or shortness of breath. Objective - Vital Signs Vital signs: Vital Signs Temp 100.9 F H 03/09/21 09:00 Pulse 90 03/09/21 09:00 Resp 16 03/09/21 09:00 BP 120/75 03/09/21 09:00 Pulse Ox 95 03/09/21 09:00 Intake & Output 03/08/21 03/09/21 03/09/21 18:59 06:59 18:59 Weight 79.379 kg 77.6 kg 77.6 kg Other: # Voids 3 - Exam Constitutional: No acute distress, conversant, pleasant Eyes:Anicteric sclerae, moist conjunctiva, no lid-lag, PERRLA, ENMT: Oropharynx clear, no erythema, exudates Neck: Supple, FROM, no masses, or JVD, No carotid bruits, No thyromegaly Lungs: Clear to auscultation, Clear to percussion, Normal respiratory effort, no accessory muscle use Cardiovascular: Heart regular in rate and rhythm, No murmurs, gallops, or rubs, No peripheral edema Abdominal: Soft, Nontender, no guarding, rebound or rigidity, Normoactive bowel sounds, No hepatomegaly, No splenomegaly, No palpable mass Skin: Normal temperature, tone, texture, turgor, no induration, No subcutaneous nodules, No rash, lesions, No ulcers Extremities: No digital cyanosis, No clubbing, Pedal pulses intact and symmetrical, Radial pulses intact and symmetrical, No calf tenderness Psychiatric: Alert and oriented to person, place and time, appropriate affect, intact judgement Neuro: Muscles Strength 5/5 in all 4 extremities, Sensation to light touch grossly present throughout, Cranial nerves II-XII grossly intact, no focal sensory deficits - Labs CBC & Chem 7: 03/08/21 14:00 03/08/21 14:00 Labs: Abnormal Lab Results - Last 24 Hours (Table) 03/08/21 03/08/21 03/08/21 Range/Units 14:00 14:00 15:16 WBC 12.8 H (3.8-10.6) k/uL Neutrophils # 11.0 H (1.3-7.7) k/uL Sodium 134 L (137-145) mmol/L Chloride 92 L (98-107) mmol/L Glucose 366 H (74-99) mg/dL POC Glucose (mg/dL) (75-99) mg/dL Lactate Dehydrogenase (313-618) U/L C-Reactive Protein (<1.0) mg/dL Urine Appearance Cloudy H (Clear) Urine Protein 2+ H (Negative) Urine Glucose (UA) 4+ H (Negative) Urine Ketones 3+ H (Negative) Urine Blood Small H (Negative) Urine WBC 19 H (0-5) /hpf Hyaline Casts 33 H (0-2) /lpf Urine Mucus Many H (None) /hpf 03/08/21 03/08/21 03/08/21 Range/Units 16:00 19:11 22:00 WBC (3.8-10.6) k/uL Neutrophils # (1.3-7.7) k/uL Sodium (137-145) mmol/L Chloride (98-107) mmol/L Glucose (74-99) mg/dL POC Glucose (mg/dL) 425 H 432 H 286 H (75-99) mg/dL Lactate Dehydrogenase (313-618) U/L C-Reactive Protein (<1.0) mg/dL Urine Appearance (Clear) Urine Protein (Negative) Urine Glucose (UA) (Negative) Urine Ketones (Negative) Urine Blood (Negative) Urine WBC (0-5) /hpf Hyaline Casts (0-2) /lpf Urine Mucus (None) /hpf 03/09/21 03/09/21 03/09/21 Range/Units 01:58 06:14 10:57 WBC (3.8-10.6) k/uL Neutrophils # (1.3-7.7) k/uL Sodium (137-145) mmol/L Chloride (98-107) mmol/L Glucose (74-99) mg/dL POC Glucose (mg/dL) 196 H 137 H (75-99) mg/dL Lactate Dehydrogenase 721 H (313-618) U/L C-Reactive Protein 14.8 H (<1.0) mg/dL Urine Appearance (Clear) Urine Protein (Negative) Urine Glucose (UA) (Negative) Urine Ketones (Negative) Urine Blood (Negative) Urine WBC (0-5) /hpf Hyaline Casts (0-2) /lpf Urine Mucus (None) /hpf 03/09/21 Range/Units 11:45 WBC (3.8-10.6) k/uL Neutrophils # (1.3-7.7) k/uL Sodium (137-145) mmol/L Chloride (98-107) mmol/L Glucose (74-99) mg/dL POC Glucose (mg/dL) 134 H (75-99) mg/dL Lactate Dehydrogenase (313-618) U/L C-Reactive Protein (<1.0) mg/dL Urine Appearance (Clear) Urine Protein (Negative) Urine Glucose (UA) (Negative) Urine Ketones (Negative) Urine Blood (Negative) Urine WBC (0-5) /hpf Hyaline Casts (0-2) /lpf Urine Mucus (None) /hpf Microbiology - Last 24 Hours (Table) 03/08/21 15:16 Urine Culture - Preliminary Urine,Voided Assessment and Plan Plan: Hyperglycemia Intractable nausea vomiting and fevers likely secondary to lingering covid pneumonia vs. superimposed bacterial pneumonia Positive ketones in the urine Positive acetone Continue insulin gtt for now. IV fluid hydration Symptomatic control of nausea vomiting Fevers/sepsis sec to pneumonia covid vs bacterial Consult ID for possible abx need Check procal Hypothyroidism levothyroxine Intermittent asthma DuoNeb's when necessary Recent diagnosis of Covid Denies any active symptoms Full code DVT prophylaxis heparin subcu 3 times a day
[2021-03-09 16:35] LABS: Glucose,Whole Blood 186 mg/dL (75-99)
[2021-03-09 20:13] LABS: Glucose,Whole Blood 210 mg/dL (75-99)
[2021-03-09] MEDS: INSULIN DETEMIR (LEVEMIR) 100 UNIT/ML SYR SQ SCH (20:19)
[2021-03-10] MEDS: ONDANSETRON 4 MG/2 ML VIAL IVP PRN (02:34)
[2021-03-10 03:27] LABS: Glucose,Whole Blood 242 mg/dL (75-99)
[2021-03-10 06:03] LABS: Glucose,Whole Blood 250 mg/dL (75-99)
[2021-03-10] MEDS: LEVOTHYROXINE 100 MCG TAB PO SCH (06:05)
[2021-03-10] MEDS: INSULIN ASPART (NovoLOG) 100 UNIT/ML VIAL SQ SCH ×4 (06:06→21:12)
[2021-03-10] MEDS: METOCLOPRAMIDE 5 MG/ML 2 ML VIAL IVP PRN (06:09)
--- NOTE | 2021-03-10 06:44 | P.CONS ---
History of Present Illness - Reason for Consult Consult date: 03/09/21 Fever Requesting physician: Silver [facility] - Chief Complaint vomiting and fever x few days - History of Present Illness History of present illness : Patient is a 25-year-old female with a past medical history significant for diabetes and asthma presenting to the hospital for nausea and vomiting patient was diagnosed with a COVID-19 infection about a week ago for the patient was admitted to the hospital and ultimately did have DKA patient was treated improved and subsequently discharged home however the patient states that the last few days she not been able to keep anything down and has not felt well since the patient has been discharged from the [facility] patient is also running a fever with some chills patient denies having any headache or URI symptoms the patient is breathing comfortably on room air denies any chest pain minimal cough no abdominal pain did have some diarrhea with recent elevation was evaluated by the ER physician on arrival to the ER the patient did have a fever of 101 F patient did have white count of 12.8 with a left shift D-dimer was normal kidney function was normal liver enzymes are normal CRP is 14.8 did have mildly positive urine with 19 WBC esterase was negative patient did have a chest x-ray bilateral peripheral pulmonary station pneumonia new patient has been admitted to the hospital discussion was consulted for further management especially because of her fever patient is currently satting 97% on room air Review of system: CONSTITUTIONAL: Positive for weakness along with the fever. EYES: No complaint. ENT: No complaint. RESPIRATORY: As per history of present illness. CARDIOVASCULAR: No complaint. GENITOURINARY: As per history of present illness GASTROINTESTINAL: No complaint. MUSCULOSKELETAL: No complaint. INTEGUMENTARY: No complaint. PSYCHOLOGIC: No complaint. ENDOCRINE: No complaint. NEUROLOGIC: No complaint. Past medical history : Reviewed, documented below Past surgical history : Reviewed, documented below Social history: Reviewed, documented below Medications: Reviewed, as documented below EXAMINATION: Vital sigans= Reviewed and documented below GENERAL DESCRIPTION: Middle-aged female lying in bed, no distress. No tachypnea or accessory muscle of respiration use. HEENT: Shows Pallor , no scleral icterus. Oral mucous membrane is dry. NECK: Trachea central, no thyromegaly. LUNGS: Unlabored breathing. Clear to auscultation anteriorly. No wheeze or crackle. HEART: S1, S2, regular rate and rhythm. ABDOMEN: Soft, no tenderness , guarding or rigidity EXTREMITIES: No edema of feet. SKIN: No rash, no masses palpable. NEUROLOGICAL: The patient is awake, alert, oriented x3, mood and affect normal. LABS AND RADIOLOGY: Reviewed results see below Assessment : 1-patient presented to hospital with intractable nausea and vomiting this patient did have a fever and diarrhea with concern of possible viral gastroenteritis and could be related to the COVID-19 however the patient did have mildly positive UA underlying UTI not entirely excluded 2-as far as a COVID-19 the patient symptom has been going on for more than 2 weeks, she did have mild pneumonia on the x-ray but not hypoxic and will not qualify for remdesivir per [facility] policy 3-Cefaclor allergy with no clear reaction documented questionably GI side effect rather than true allergy Plan: 1-Rocephin 1 g IV every 8 daily 2-Lovenox zinc and ascorbic acid 3-we will hold on any steroids as the patient is currently not hypoxic and did have a history of diabetes and recent DKA 4-IV fluids We will follow on clinical condition and cultures to further adjust medication if needed Thank you for this consultation we will follow the patient along with you Past Medical History Past Medical History: Asthma, Diabetes Mellitus, Thyroid Disorder Additional Past Medical History / Comment(s): silvio calero History of Any Multi-Drug Resistant Organisms: C-DIFF Year Discovered:: 2017 MDRO Source:: stool Past Surgical History: No Surgical Hx Reported Additional Past Surgical History / Comment(s): d and c , left groin Past Anesthesia/Blood Transfusion Reactions: No Reported Reaction Past Psychological History: Anxiety Smoking Status: Current every day smoker Past Alcohol Use History: None Reported Past Drug Use History: None Reported - Past Family History Family Family Medical History: No Reported History Medications and Allergies Home Medications Medication Instructions Recorded Confirmed Type Levothyroxine Sodium [Synthroid] 200 mcg PO DAILY 06/30/17 03/08/21 History INSULIN LISPRO (humaLOG) [humaLOG] See Protocol SQ AC-TID 03/03/21 03/08/21 History Insulin Glargine [Lantus Vial] 20 units SQ HS 03/03/21 03/08/21 History Ondansetron Odt [Zofran ODT] 8 mg PO TID PRN 03/08/21 03/08/21 History Allergies Allergy/AdvReac Type Severity Reaction Status Date / Time cefaclor [From [facility]] Allergy Family Verified 03/08/21 19:03 history Physical Exam Vitals: Vital Signs Temp Pulse Resp BP Pulse Ox 03/10/21 03:20 99.5 F 94 18 129/75 94 L 03/10/21 00:00 99.9 F H 94 18 117/77 97 03/09/21 20:20 98.2 F 96 17 118/74 94 L 03/09/21 17:10 100.7 F H 96 16 117/78 90 L 03/09/21 12:10 100.3 F H 92 18 109/70 92 L 03/09/21 09:00 100.9 F H 90 16 120/75 95 Intake and Output 03/09/21 03/09/21 03/10/21 14:59 22:59 06:59 Other: Voiding Method Toilet Toilet # Voids 1 1 # Bowel Movements 1 Weight 77.6 kg 79 kg Results CBC & Chem 7: 03/08/21 14:00 03/08/21 14:00 Labs: Abnormal Lab Results - Last 24 Hours (Table) 03/09/21 03/09/21 03/09/21 Range/Units 10:57 10:57 11:45 POC Glucose (mg/dL) 134 H (75-99) mg/dL Ferritin 479.0 H (10.0-291.0) ng/mL Lactate Dehydrogenase 721 H (313-618) U/L C-Reactive Protein 14.8 H (<1.0) mg/dL Procalcitonin 0.25 H (0.02-0.09) ng/mL 03/09/21 03/09/21 03/10/21 Range/Units 16:32 20:11 03:25 POC Glucose (mg/dL) 186 H 210 H 242 H (75-99) mg/dL Ferritin (10.0-291.0) ng/mL Lactate Dehydrogenase (313-618) U/L C-Reactive Protein (<1.0) mg/dL Procalcitonin (0.02-0.09) ng/mL 03/10/21 Range/Units 06:02 POC Glucose (mg/dL) 250 H (75-99) mg/dL Ferritin (10.0-291.0) ng/mL Lactate Dehydrogenase (313-618) U/L C-Reactive Protein (<1.0) mg/dL Procalcitonin (0.02-0.09) ng/mL Microbiology - Last 24 Hours (Table) 03/08/21 15:16 Urine Culture - Final Urine,Voided Strep agalactiae - (group b)
[2021-03-10 08:11] LABS: Basophils % (A) 0 %; Eosinophils # (A) 0.1 k/uL (0-0.7); Eosinophils % (A) 1 %; HGB 10.2 gm/dL (11.4-16.0); Lymphocytes # (A) 1.6 k/uL (1.0-4.8); Lymphocytes % (A) 18 %; MCH 31.3 pg (25.0-35.0); MCHC 33.9 g/dL (31.0-37.0); MCV 92.5 fL (80.0-100.0); Monocytes # (A) 0.6 k/uL (0-1.0); Monocytes % (A) 7 %; Neutrophils # (A) 6.4 k/uL (1.3-7.7); Neutrophils % (A) 72 %; Platelet Count 380 k/uL (150-450); RBC 3.24 m/uL (3.80-5.40); RDW 11.7 % (11.5-15.5); WBC 8.8 k/uL (3.8-10.6)
[2021-03-10] MEDS: SODIUM CHLORIDE 0.9% 1,000 ML IV SCH ×2 (08:36→16:07)
[2021-03-10] MEDS: HEPARIN SODIUM,PORCINE/PF 5,000 UNIT/0.5 ML SYRINGE SQ SCH ×3 (08:36→23:52)
[2021-03-10] MEDS: ZINC SULFATE 220 MG CAP PO SCH (08:37)
[2021-03-10] MEDS: ASCORBIC ACID 500 MG TAB PO SCH (08:37)
[2021-03-10 08:46] LABS: ALT 18 U/L (4-34); AST 23 U/L (14-36); African American GFR (CKD) >90 (>60 ml/min/1.73 sqM); Albumin 2.5 g/dL (3.5-5.0); Alkaline Phosphatase 79 U/L (38-126); Anion Gap 8 mmol/L; Blood Urea Nitrogen 4 mg/dL (7-17); Calcium 7.5 mg/dL (8.4-10.2); Carbon Dioxide 25 mmol/L (22-30); Chloride 103 mmol/L (98-107); Glucose 201 mg/dL (74-99); Magnesium 1.7 mg/dL (1.6-2.3); Non-African American GFR(CKD) >90 (>60 ml/min/1.73 sqM); Phosphorus 2.1 mg/dL (2.5-4.5); Potassium 3.4 mmol/L (3.5-5.1); Sodium 136 mmol/L (137-145); Total Bilirubin 0.3 mg/dL (0.2-1.3); Total Protein 5.1 g/dL (6.3-8.2)
[2021-03-10] MEDS ORDERED: POTASSIUM CHLORIDE ER 20 MEQ TAB.ER PO STA (11:24)
[2021-03-10 11:56] LABS: Glucose,Whole Blood 165 mg/dL (75-99)
--- NOTE | 2021-03-10 14:30 | PN ---
PROGRESS NOTE DATE OF SERVICE: 03/10/2021 REASON FOR FOLLOWUP: Fever. INTERVAL HISTORY: Patient overall fever pattern has improved. She has been complaining of more cough though. Patient denies having any chest pain. Not bringing up any sputum. No further nausea, vomiting, abdominal pain or diarrhea. PHYSICAL EXAMINATION: Blood pressure 99/63 with a pulse of 94, temperature 99. She is 90% on room air. General description is a middle-aged female lying in bed in no distress. Respiratory system: Unlabored breathing, coarse breath sounds bilaterally. No wheeze. Heart S1, S2. Regular rate and rhythm. Abdomen soft, no tenderness. Extremities: No edema of the feet. LABS: Hemoglobin is 10.1, white count 8.8. BUN of 4, creatinine 0.57. DIAGNOSTIC IMPRESSION AND PLAN: 1. This patient with fever, multifactorial, in this patient likely from Covid 19 infection. The patient's symptoms have been going on for more than 2 weeks. She is currently out of the therapeutic window for Remdesivir. In view of the hypoxemia seen and worsening pneumonia, we will add dexamethasone. The patient already on heparin. 2. Possible urinary tract infection with Streptococcal . The patient does not have an allergy to . Should be taken off the chart. MMODL / IJN: [id number] /
[2021-03-10] MEDS: DEXAMETHASONE SOD PHOSPHATE 10 MG/ML 1 ML VIAL IV SCH (14:48)
[2021-03-10] MEDS: BENZONATATE 100 MG CAP PO PRN ×2 (14:49→21:14)
--- NOTE | 2021-03-10 14:58 | P.PN ---
Subjective Progress Note Date: 03/10/21 Hospital course: Patient is a 25-year-old female with a past medical history of diabetes mellitus type I, whom was recently released from the hospital on 03/05/21 after being diagnosed with Acute Covid 19 infection and DKA. Patient return to the hospital on 03/08/21 with a chief complaint of intractable nausea and vomiting. She could not hold anything down. She was diagnosed with hyperglycemia and COVID-19 infection. Patient did have positive ketones in her urineand what appeared to be a mild urinary tract infection. Her leukocytes slightly elevated with WBC of 12.8, pro-calcitonin was slightly elevated at 0.25 and she had elevated inflammatory markers with CRP of 14.8 and LDH of 721. Ferritin was 479. Acetone positive. Chest x-ray showing bilateral peripheral pulmonary interstitial pneumonia new compared to previous examination. Patient admitted to our services with consultation to infectious disease. Physical exam: Patient was seen and fully evaluated at the bedside this morning. she has had some noted drop in pulse ox as she was initially 97% on room air and now 90% on room air this morning. Patient started on Decadron 6 mg IVP daily at this time. Blood glucose 165 this morning and we will monitor closely with initiation of steroids. Highest temp over the past 24 hours was 100.9F. Morning labs revealed hypokalemia and hypomagnesemia. Patient reports cough and body aches. She denies having any headache, lightheadedness, dizziness, chest pain, palpitations, or shortness of breath at this time. Vital signs reviewed and stable. General: Nontoxic, no distress and appears stated age. Derm: Skin warm and dry, normal coloration for ethnicity. Head: Atraumatic, normocephalic and symmetric. Eyes: EOMs intact, no lid lag, and anicteric sclera Mouth: no lip lesions, mucus membranes moist Cardiovascular: regular rate and rhythm with normal S1S2, no murmur, positive posterior tibial pulses bilaterally, and cap refill < 2 seconds. Lungs: Respirations even, regular, and unlabored on room air. Lungs CTA bilaterally, no rhonchi, no rales, no wheezing, and no accessory muscle usage. Abdominal: soft, nontender to palpation, no guarding, no appreciable organomegaly Ext: ROM intact. No gross muscle atrophy, no edema, no contractures Neuro: Speech clear, face symmetrical and CN II-XII grossly intact with no noted focal neuro deficits Psych: Alert and oriented to person, place, time, and situation. Appropriate and pleasant affect. Assessment and Plan of Care: Intractable nausea vomiting Pyrexia Covid 19 pneumonia Type I diabetes mellitus with uncontrolled hyperglycemia, likely secondary to current infectious process with Covid 19 pneumonia and UTI UTI -Chest x-ray showing bilateral peripheral pulmonary interstitial pneumonia new compared to previous examination. -Oxygenation to be administered as needed and titrated as needed to maintain SPO2 equal to or greater than 92% -Telemetry monitoring. -Decadron 6 mg daily -Vitamin B, Vitamin D, and Zinc -Encourage Incentive Spirometry -Symptomatic care: Tylenol as needed for fevers/body aches/pain, Zofran as needed for nausea/vomiting, and continued fluid hydration. -Rocephin for treatment of UTI -Maintain tight glycemic control of blood glucose levels. Glycemic protocol with NovoLog sliding scale along with long acting Levemir. Hypomagnesemia Replaced, we will continue to monitor with repeat a.m. labs and replace abnormal electrolyte values as needed. Hypokalemia Replaced, we will continue to monitor with repeat a.m. labs and replace abnormal electrolyte values as needed. Hypothyroidism -Continue daily medication regimen with levothyroxine CODE STATUS: Full code DVT prophylaxis: Heparin Discussed with: Patient and RN Anticipated discharge date: clinical course to determine Anticipated discharge place: Home A total of 45 minutes was spent on the care of this complex patient more than 50% of the time was spent in counseling and care coordination Objective - Vital Signs Vital signs: Vital Signs Temp 99.5 F 03/10/21 03:20 Pulse 94 03/10/21 03:20 Resp 18 03/10/21 03:20 BP 129/75 03/10/21 03:20 Pulse Ox 94 L 03/10/21 03:20 Intake & Output 03/09/21 03/10/21 03/10/21 18:59 06:59 18:59 Weight 77.6 kg 79 kg Other: Voiding Method Toilet # Voids 1 1 # Bowel Movements 1 - Labs CBC & Chem 7: 03/10/21 07:45 03/10/21 07:45 Labs: Abnormal Lab Results - Last 24 Hours (Table) 03/09/21 03/09/21 03/09/21 Range/Units 10:57 10:57 11:45 POC Glucose (mg/dL) 134 H (75-99) mg/dL Ferritin 479.0 H (10.0-291.0) ng/mL Lactate Dehydrogenase 721 H (313-618) U/L C-Reactive Protein 14.8 H (<1.0) mg/dL Procalcitonin 0.25 H (0.02-0.09) ng/mL 03/09/21 03/09/21 03/10/21 Range/Units 16:32 20:11 03:25 POC Glucose (mg/dL) 186 H 210 H 242 H (75-99) mg/dL Ferritin (10.0-291.0) ng/mL Lactate Dehydrogenase (313-618) U/L C-Reactive Protein (<1.0) mg/dL Procalcitonin (0.02-0.09) ng/mL 03/10/21 Range/Units 06:02 POC Glucose (mg/dL) 250 H (75-99) mg/dL Ferritin (10.0-291.0) ng/mL Lactate Dehydrogenase (313-618) U/L C-Reactive Protein (<1.0) mg/dL Procalcitonin (0.02-0.09) ng/mL Microbiology - Last 24 Hours (Table) 03/08/21 15:16 Urine Culture - Final Urine,Voided Strep agalactiae - (group b)
[2021-03-10] MEDS: MAGNESIUM SULFATE-D5W PMX 1 GM in DEXTROSE/WATER 1 100ML.BAG IVPB SCH ×2 (16:07→17:26)
[2021-03-10 16:58] VITALS: RESP 18
[2021-03-10 16:59] LABS: Glucose,Whole Blood 376 mg/dL (75-99)
[2021-03-10 20:39] LABS: Glucose,Whole Blood 369 mg/dL (75-99)
[2021-03-10] MEDS: INSULIN DETEMIR (LEVEMIR) 100 UNIT/ML SYR SQ SCH (21:12)
[2021-03-11] MEDS: SODIUM CHLORIDE 0.9% 1,000 ML IV SCH ×2 (00:03→09:36)
[2021-03-11 02:05] LABS: Glucose,Whole Blood 381 mg/dL (75-99)
[2021-03-11 06:32] LABS: Glucose,Whole Blood 381 mg/dL (75-99)
[2021-03-11] MEDS: LEVOTHYROXINE 100 MCG TAB PO SCH (06:43)
[2021-03-11] MEDS: INSULIN ASPART (NovoLOG) 100 UNIT/ML VIAL SQ SCH ×2 (06:44→11:57)
[2021-03-11] MEDS ORDERED: INSULIN DETEMIR (LEVEMIR) 100 UNIT/ML SYR SQ SCH (08:00)
[2021-03-11] MEDS: DEXAMETHASONE SOD PHOSPHATE 10 MG/ML 1 ML VIAL IV SCH (08:27)
[2021-03-11] MEDS: ASCORBIC ACID 500 MG TAB PO SCH (08:27)
[2021-03-11] MEDS: ZINC SULFATE 220 MG CAP PO SCH (08:27)
[2021-03-11] MEDS: HEPARIN SODIUM,PORCINE/PF 5,000 UNIT/0.5 ML SYRINGE SQ SCH (08:27)
[2021-03-11 08:36] LABS: Basophils % (A) 0 %; Eosinophils % (A) 0 %; HGB 11.8 gm/dL (11.4-16.0); Lymphocytes # (A) 0.9 k/uL (1.0-4.8); Lymphocytes % (A) 10 %; MCH 30.4 pg (25.0-35.0); MCHC 31.8 g/dL (31.0-37.0); MCV 95.5 fL (80.0-100.0); Mean Platelet Volume 8.9; Monocytes # (A) 0.4 k/uL (0-1.0); Monocytes % (A) 4 %; Neutrophils # (A) 7.1 k/uL (1.3-7.7); Neutrophils % (A) 85 %; Platelet Count 569 k/uL (150-450); RBC 3.87 m/uL (3.80-5.40); RDW 11.8 % (11.5-15.5); WBC 8.4 k/uL (3.8-10.6)
[2021-03-11 09:52] LABS: African American GFR (CKD) >90 (>60 ml/min/1.73 sqM); Anion Gap 10 mmol/L; Blood Urea Nitrogen 13 mg/dL (7-17); Calcium 8.5 mg/dL (8.4-10.2); Carbon Dioxide 22 mmol/L (22-30); Chloride 100 mmol/L (98-107); Glucose 407 mg/dL (74-99); LDH 638 U/L (313-618); Magnesium 2.4 mg/dL (1.6-2.3); Non-African American GFR(CKD) >90 (>60 ml/min/1.73 sqM); Potassium 4.7 mmol/L (3.5-5.1); Sodium 132 mmol/L (137-145)
[2021-03-11 10:04] LABS: C Reactive Protein 14.3 mg/dL (<1.0)
[2021-03-11 11:36] LABS: Glucose,Whole Blood 487 mg/dL (75-99)
[2021-03-11] MEDS ORDERED: SODIUM CHLORIDE 0.9% 1,000 ML IV ONE (11:44)
[2021-03-11 12:20] VITALS: BP 115/73; PULSE 78; TEMP 97.9
[2021-03-11] MEDS ORDERED: INSULIN ASPART (NovoLOG) 100 UNIT/ML VIAL SQ SCH (12:30)
[2021-03-11 13:11] LABS: Glucose,Whole Blood 439 mg/dL (75-99)
--- NOTE | 2021-03-11 17:01 | P.DS ---
<Conner Decker - Last Filed: 03/11/21 16:41> Providers Expected date of discharge: 03/11/21 Hospital Course: Discharge Diagnosis: Intractable nausea vomiting, resolved Covid 19 pneumonia Type I diabetes mellitus with uncontrolled hyperglycemia, likely secondary to current infectious process with Covid 19 pneumonia and UTI Group B strep positive UTI Pyrexia, resolved Hypomagnesemia, resolved Hypokalemia, resolved Hypothyroidism Hospital Course: Patient is a 25-year-old female with a past medical history of diabetes mellitus type I, whom was recently released from the hospital on 03/05/21 after being diagnosed with Acute Covid 19 infection and DKA. Patient return to the hospital on 03/08/21 with a chief complaint of intractable nausea and vomiting. She could not hold anything down. She was diagnosed with hyperglycemia and COVID-19 infection. Patient did have positive ketones in her urineand what appeared to be a mild urinary tract infection. Her leukocytes slightly elevated with WBC of 12.8, pro-calcitonin was slightly elevated at 0.25 and she had elevated inflammatory markers with CRP of 14.8 and LDH of 721. Ferritin was 479. Acetone positive. Chest x-ray showing bilateral peripheral pulmonary interstitial pneumonia new compared to previous examination. Patient was admitted to our services with consultation to infectious disease. Patient received fluid hydration and treatment for hyperglycemia. She was started on steroids for isolated episode in which patients SpO2 dropped to 90%. She denied experiencing any shortness of breath or dyspnea with exertion. She continued to have further elevation in blood glucose levels which was likely secondary to use of steroids however patient did have noted empty soda cans in room as well. Urine culture positive for group B strep agalactiae. 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 Patient was going to leave AMA, however after long discussion with patient regarding close monitoring of glucose levels, home insulin use, and her average blood glucose levels reported at 150-200. It was discussed with infectious disease and was agreed upon that patient is stable and may be discharged back home to resume her Humalog sliding scale and 20 units of Lantus nightly. Patient agreed that she will follow-up with her PCP, Dr. Ambrocio in 1-2 days and that she will closely monitor her glucose levels and treat as indicated. Patient verbalized understanding of carb consistent diet and was educated on urine culture results and need for continued antibiotic to complete treatment. Patient also educated on the need for isolation period secondary to her current Covid infection and informed that earliest time to discontinue isolation would be 03/16/21 and this is only if she is symptom-free for a minimum of 2 days preceding that. Patient's postprandial glucose level was 439 in which patient received 11 units of NovoLog for treatment prior to being discharged. Patient left prior to repeat glucose levels, but did receive confirmation from pharmacy that patient picked up antibiotics. Physical exam: Vital signs reviewed and stable. General: Nontoxic, no distress and appears stated age. Derm: Skin warm and dry, normal coloration for ethnicity. Head: Atraumatic, normocephalic and symmetric. Eyes: EOMs intact, no lid lag, and anicteric sclera Mouth: no lip lesions, mucus membranes moist Cardiovascular: regular rate and rhythm with normal S1S2, no murmur, positive posterior tibial pulses bilaterally, and cap refill < 2 seconds. Lungs: Respirations even, regular, and unlabored on room air. Lungs CTA bilaterally, no rhonchi, no rales, no wheezing, and no accessory muscle usage. Abdominal: soft, nontender to palpation, no guarding, no appreciable organomegaly Ext: ROM intact. No gross muscle atrophy, no edema, no contractures Neuro: Speech clear, face symmetrical and CN II-XII grossly intact with no noted focal neuro deficits Psych: Alert and oriented to person, place, time, and situation. Appropriate and pleasant affect. A total of 55 minutes of time were spent preparing this complex discharge summary. Patient Condition at Discharge: Stable Plan - Discharge Summary Discharge Rx Participant: No New Discharge Prescriptions: New Ascorbic Acid [Vitamin C] 1,000 mg PO DAILY 30 Days #60 tab Zinc Sulfate [Orazinc] 220 mg PO DAILY 30 Days #30 cap Cefuroxime Axetil [Ceftin] 500 mg PO BID 3 Days #6 tab Continue Levothyroxine Sodium [Synthroid] 200 mcg PO DAILY INSULIN LISPRO (humaLOG) [humaLOG] See Protocol SQ AC-TID Insulin Glargine [Lantus Vial] 20 units SQ HS Ondansetron Odt [Zofran ODT] 8 mg PO TID PRN PRN Reason: Nausea And Vomiting Discharge Medication List Levothyroxine Sodium [Synthroid] 200 mcg PO DAILY 06/30/17 [History] INSULIN LISPRO (humaLOG) [humaLOG] See Protocol SQ AC-TID 03/03/21 [History] Insulin Glargine [Lantus Vial] 20 units SQ HS 03/03/21 [History] Ondansetron Odt [Zofran ODT] 8 mg PO TID PRN 03/08/21 [History] Ascorbic Acid [Vitamin C] 1,000 mg PO DAILY 30 Days #60 tab 03/11/21 [Rx] Cefuroxime Axetil [Ceftin] 500 mg PO BID 3 Days #6 tab 03/11/21 [Rx] Zinc Sulfate [Orazinc] 220 mg PO DAILY 30 Days #30 cap 03/11/21 [Rx] Follow up Appointment(s)/Referral(s): Gerardo Ambrocio MD [Primary Care Provider] - 1-2 days (Call office to schedule follow up) Patient Instructions/Handouts: Diabetic Ketoacidosis (IP) Activity/Diet/Wound Care/Special Instructions: Activity: As tolerated. Take breaks as needed. Diet: Heart healthy and carb consistent diet. Avoid added sugars, salts, or foods with hidden salts such as canned or boxed foods and frozen dinners. Avoid regular soda and juice as discussed. Special Instructions: Take all of your medications as directed and remember to keep all of your doctor's appointments and follow-up as needed. It is important to continue with social isolation secondary to your current Covid infection. You may come out of isolation at the earliest on 03/16/21 only if symptom-free for a minimum of 2 days. It is important to complete the entire course of your antibiotic as your urine culture was positive for group B strep. You are being discharged home on Ceftin 500 mg twice daily for 3 more days. Thank you for allowing us to participate in your care, it was truly a pleasure having you for our patient!!! Discharge Disposition: HOME SELF-CARE <Eulalia Clayton - Last Filed: 03/11/21 22:49> Providers Date of admission: 03/08/21 17:00 Attending physician: Navdeep Calero MD Consults: 03/09/21 09:55 Consult Physician Routine Consulting Provider: Lamine Donovan Consult Reason/Comments: fever Do you want consulting provider notified?: Yes Primary care physician: Gerardo Ambrocio [facility] Course: Conner Decker NP rendered care for this patient independently, reviewed the findings and plan as documented in the note above. I did not physically speak with or examine the patient on this date.
== END 2021-03-11 13:36 | disposition home or self-care (01) | DRG 177 ==
LOC: EC 13:32 → 3SCARD 17:00
PROVIDERS: ADMIT Internal Medicine; ATTEND Internal Medicine
DX: U07.1 COVID-19 (principal); J12.82 Pneumonia due to coronavirus disease 2019; N39.0 Urinary tract infection, site not specified; A08.39 Other viral enteritis; E10.65 Type 1 diabetes mellitus with hyperglycemia; Z79.4 Long term (current) use of insulin; J45.20 Mild intermittent asthma, uncomplicated; B95.1 Streptococcus, group B, as the cause of diseases classified elsewhere; E06.3 Autoimmune thyroiditis; E87.6 Hypokalemia; R09.02 Hypoxemia; F17.200 Nicotine dependence, unspecified, uncomplicated; Z79.890 Hormone replacement therapy; Z86.19 Personal history of other infectious and parasitic diseases; Z87.42 Personal history of other diseases of the female genital tract; Z86.59 Personal history of other mental and behavioral disorders; Z98.890 Other specified postprocedural states; Z88.1 Allergy status to other antibiotic agents
CPT/HCPCS: 36415; 71045; 80048; 80053; 81001; 81025; 82009; 82728; 83615; 83735; 84100; 84145; 85025; 85379; 86140; 87086; 96361; 96374; 99285